=== PATIENT | male | born 1985 | race Asian ===

== ENCOUNTER 2018-10-23 04:07 | Observation (INO) | payer BC, OTHER ==
[2018-10-23 05:07] LABS: Absolute Lymphocytes (CBC) 3.1 K/uL (0.7-4.9); Absolute Monocytes 0.6 K/uL (0.1-1.3); Absolute Neutrophil 8.1 K/uL (1.8-8.0); Basophils % 0.7 % (0-1.3); Eosinophils % 0.8 % (0-4.4); Hematocrit 44.2 % (39.6-49.0); Lymphocytes % 26.1 % (15.3-44.8); MPV 8.5 fL (7.6-11.3); Monocytes % 5.4 % (3.3-12.3); RBC Red Blood Cell Count 5.15 M/uL (4.33-5.43)
[2018-10-23 05:09] LABS: Protime INR 0.89
[2018-10-23 05:28] LABS: ALT/SGPT 44 U/L (12-78); AST/SGOT 10 U/L (15-37); Albumin 3.9 g/dL (3.4-5.0); Alkaline Phosphatase 117 U/L (45-117); BUN Blood Urea Nitrogen 13 mg/dL (7-18); Bicarbonate 26 mmol/L (21-32); Bilirubin Direct 0.1 mg/dL (0-0.2); Bilirubin Total 0.3 mg/dL (0.2-1.0); Glucose Level 225 mg/dL (74-106); NT PRO-BNP 10 pg/mL (<125); Potassium 3.7 mmol/L (3.5-5.1); Sodium Level 137 mmol/L (136-145); Troponin (Emerg Dept Use Only) < 0.02 ng/mL (0.0-0.045)
[2018-10-23] MEDS ORDERED: ASPIRIN 81 MG CHEWABLE TABLET ONE (05:30)
--- NOTE | 2018-10-23 05:43 | ER ---
Nurse's Notes [facility] Name: Jim Nguyễn Jr Age: 33 yrs Sex: Male : 1985 Arrival Date: 10/23/2018 Time: 04:07 Bed 16 Private MD: Juan David Pelaez Diagnosis: Chest pain;palpitations Presentation: 10/23 04:20 Presenting complaint: Patient states: right sided chest pain started 0300h suddenly I rr5 woke up and felt the pain associated with right arm numbness.pain score of 3/10. Transition of care: patient was not received from another setting of care. Onset of symptoms was October 23, 2018 at 03:00. Risk Assessment: Do you want to hurt yourself or someone else? Patient reports no desire to harm self or others. Initial Sepsis Screen: Does the patient meet any 2 criteria? No. Patient's initial sepsis screen is negative. Does the patient have a suspected source of infection? No. Patient's initial sepsis screen is negative. Care prior to arrival: None. 04:20 Method Of Arrival: Ambulatory rr5 04:20 Acuity: LUCILA 3 rr5 Historical: - Allergies: 04:27 No Known Allergies; rr5 - Home Meds: 04:27 Glipizide Oral [Active]; lisinopril Oral [Active]; Metformin Oral [Active]; rr5 - PMHx: 04:27 Asthma; Diabetes - NIDDM; Hypertension; rr5 - PSHx: 04:27 Appendectomy; rr5 - Immunization history:: Adult Immunizations not up to date. - Social history:: Smoking status: Patient uses tobacco products, smokes one pack cigarettes per day. Patient uses alcohol, occasionally. Patient/guardian denies using street drugs. - Ebola Screening: : Patient negative for fever greater than or equal to 101.5 degrees Fahrenheit, and additional compatible Ebola Virus Disease symptoms Patient denies exposure to infectious person Patient denies travel to an Ebola-affected area in the 21 days before illness onset. - Family history:: pertinent for diabetes, hypertension. - Hospitalizations: : No recent hospitalization is reported. Screenin:31 Abuse screen: Denies threats or abuse. Denies injuries from another. Nutritional rr5 screening: No deficits noted. Tuberculosis screening: No symptoms or risk factors identified. Fall Risk IV access (20 points). Total Couch Fall Scale indicates No Risk (0-24 pts). Assessment: 04:20 General: Appears in no apparent distress. comfortable, Behavior is calm, cooperative, rr5 appropriate for age. Pain: Complains of pain in right sided chest pain Pain does not radiate. Pain currently is 3 out of 10 on a pain scale. Quality of pain is described as aching, Pain began suddenly, Is intermittent. Neuro: Level of Consciousness is awake, alert, obeys commands, Oriented to person, place, time, situation, Appropriate for age. Cardiovascular: Capillary refill < 3 seconds Patient's skin is warm and dry. Rhythm is sinus tachycardia. Respiratory: Airway is patent Respiratory effort is even, unlabored, Respiratory pattern is regular, symmetrical. GI: No signs and/or symptoms were reported involving the gastrointestinal system. : No signs and/or symptoms were reported regarding the genitourinary system. EENT: No signs and/or symptoms were reported regarding the EENT system. Derm: Skin is intact, Skin temperature is warm. 04:20 Musculoskeletal: Capillary refill < 3 seconds, Range of motion: intact in all rr5 extremities. 05:30 Reassessment: Patient appears in no apparent distress at this time. Patient and/or rr5 family updated on plan of care and expected duration. Pain level reassessed. informed patient will be admitted. seen and examined by dr. candelario. 06:18 Reassessment: Patient appears in no apparent distress at this time. Patient and/or rr5 family updated on plan of care and expected duration. Pain level reassessed. no complaints made Patient states feeling better. Patient states symptoms have improved. Vital Signs: 04:20 BP 176 / 123; Pulse 106; Resp 19; Temp 98.5; Pulse Ox 100% on R/A; Weight 95.25 kg; rr5 Height 5 ft. 9 in. (175.26 cm); Pain 3/10; 05:00 BP 144 / 84; Pulse 95; Resp 17; Pulse Ox 99% on R/A; rr5 05:30 BP 127 / 74; Pulse 95; Resp 19; Pulse Ox 99% ; rr5 06:00 BP 119 / 69; Pulse 88; Resp 20; Pulse Ox 99% ; rr5 04:20 Body Mass Index 31.01 (95.25 kg, 175.26 cm) rr5 ED Course: 04:07 Patient arrived in ED. ds1 04:08 Juan David Pelaez MD is Private Physician. ds1 04:20 Evangelist Ambrose, RN is Primary Nurse. rr5 04:20 Darrick Novoa MD is Attending Physician. wa 04:25 Triage completed. rr5 04:25 Patient has correct armband on for positive identification. Placed in gown. Bed in low rr5 position. Call light in reach. Side rails up X2. property assessment monitor on. Pulse ox on. NIBP on. 04:28 Arm band placed on right wrist. EKG completed in triage. Results shown to MD. rr5 04:31 No provider procedures requiring assistance completed. Patient maintains SpO2 rr5 saturation greater than 95% on room air. 04:50 Inserted saline lock: 20 gauge in left forearm, using aseptic technique. Blood jd3 collected. 05:10 Patient moved to radiology via wheelchair. kw 05:10 X-ray completed. Patient tolerated procedure well. kw 05:10 Patient moved back from radiology. kw 05:11 Chest Pa And Lat (2 Views) XRAY In Process Unspecified. EDMN 05:41 Pepper Lim MD is Hospitalizing Provider. wa 06:18 Patient admitted, IV remains in place. intact. rr5 10:33 Routine [place]elso treadmill stress test performed. tc Administered Medications: 05:24 Drug: Aspirin Chewable Tablet 324 mg Route: PO; rr5 06:30 Follow up: Response: No adverse reaction rr5 Outcome: 05:41 Decision to Hospitalize by Provider. wa 06:25 Admitted to ER Hold. Please see [facility] for further documentation. rr5 06:25 Condition: stable 06:25 Instructed on the need for admit. 12:26 Patient left the ED. tw2 Signatures: Dispatcher [employer] EDMN Vidhya Bhatti ds1 Claudia Cramer kw Caron Meyer, geochemist EKG Ttc Gracie Sylvester RN RN tw2 Darrick Novoa MD MD wa Davies, Jonathon RN RN jd3 Evangelist Ambrose, RN RN rr5
--- NOTE | 2018-10-23 05:43 | EDPHYS ---
Physician Documentation [facility] Name: Jim Nguyễn Jr Age: 33 yrs Sex: Male : 1985 Arrival Date: 10/23/2018 Time: 04:07 Bed 16 Private MD: Juan David Pleaez ED Physician Darrick Novoa HPI: 10/24 06:43 This 33 yrs old Male presents to ER via Ambulatory with complaints of Chest Pain. co 06:43 The patient or guardian reports chest pain that is located primarily in the substernal wa area. The pain does not radiate. Associated signs and symptoms: Pertinent positives: palpitations, shortness of breath, Pertinent negatives: cough, diaphoresis, dizziness. The chest pain is described as a pressure. Duration: The patient or guardian reports a single episode, that lasted 15 minute(s) woke pt from sleep. noted "heart racing". Modifying factors: The symptoms are alleviated by nothing. the symptoms are aggravated by nothing. Severity of pain: At its worst the pain was moderate just prior to arrival, in the emergency department the pain has resolved. h/o intermittent palpitations over several years. pt believes he has "anxiety". The patient has not recently seen a physician. has h/o HTN, DM, and smokes a pack a cigs per day. Historical: - Allergies: 10/23 04:27 No Known Allergies; rr5 - Home Meds: 04:27 Glipizide Oral [Active]; lisinopril Oral [Active]; Metformin Oral [Active]; rr5 - PMHx: 04:27 Asthma; Diabetes - NIDDM; Hypertension; rr5 - PSHx: 04:27 Appendectomy; rr5 - Immunization history:: Adult Immunizations not up to date. - Social history:: Smoking status: Patient uses tobacco products, smokes one pack cigarettes per day. Patient uses alcohol, occasionally. Patient/guardian denies using street drugs. - Ebola Screening: : Patient negative for fever greater than or equal to 101.5 degrees Fahrenheit, and additional compatible Ebola Virus Disease symptoms Patient denies exposure to infectious person Patient denies travel to an Ebola-affected area in the 21 days before illness onset. - Family history:: pertinent for diabetes, hypertension. - Hospitalizations: : No recent hospitalization is reported. ROS: 10/24 06:46 Constitutional: Negative for fever, chills, and weight loss, Eyes: Negative for injury, wa pain, redness, and discharge, ENT: Negative for injury, pain, and discharge, Neck: Negative for injury, pain, and swelling, Abdomen/GI: Negative for abdominal pain, nausea, vomiting, diarrhea, and constipation, Back: Negative for injury and pain, : Negative for injury, bleeding, discharge, and swelling, MS/Extremity: Negative for injury and deformity, Skin: Negative for injury, rash, and discoloration, Neuro: Negative for headache, weakness, numbness, tingling, and seizure. Cardiovascular: Positive for chest pain, palpitations, Negative for edema, orthopnea, paroxysmal nocturnal dyspnea. Respiratory: Positive for shortness of breath, at rest. Negative for hemoptysis, orthopnea, pleurisy. All other systems are negative. Exam: 06:47 Constitutional: This is a well developed, well nourished patient who is awake, alert, wa and in no acute distress. Head/Face: Normocephalic, atraumatic. Eyes: Pupils equal round and reactive to light, extra-ocular motions intact. Lids and lashes normal. Conjunctiva and sclera are non-icteric and not injected. Cornea within normal limits. Periorbital areas with no swelling, redness, or edema. ENT: Nares patent. No nasal discharge, no septal abnormalities noted. Tympanic membranes are normal and external auditory canals are clear. Oropharynx with no redness, swelling, or masses, exudates, or evidence of obstruction, uvula midline. Mucous membranes moist. Neck: Trachea midline, no thyromegaly or masses palpated, and no cervical lymphadenopathy. Supple, full range of motion without nuchal rigidity, or vertebral point tenderness. No Meningismus. Cardiovascular: Regular rate and rhythm with a normal S1 and S2. No gallops, murmurs, or rubs. Normal PMI, no JVD. No pulse deficits. Respiratory: Lungs have equal breath sounds bilaterally, clear to auscultation and percussion. No rales, rhonchi or wheezes noted. No increased work of breathing, no retractions or nasal flaring. Abdomen/GI: Soft, non-tender, with normal bowel sounds. No distension or tympany. No guarding or rebound. No evidence of tenderness throughout. Back: No spinal tenderness. No costovertebral tenderness. Full range of motion. Skin: Warm, dry with normal turgor. Normal color with no rashes, no lesions, and no evidence of cellulitis. MS/ Extremity: Pulses equal, no cyanosis. Neurovascular intact. Full, normal range of motion. Neuro: Awake and alert, GCS 15, oriented to person, place, time, and situation. Cranial nerves II-XII grossly intact. Motor strength 5/5 in all extremities. Sensory grossly intact. Cerebellar exam normal. Normal gait. Psych: Awake, alert, with orientation to person, place and time. Behavior, mood, and affect are within normal limits. Vital Signs: 10/23 04:20 BP 176 / 123; Pulse 106; Resp 19; Temp 98.5; Pulse Ox 100% on R/A; Weight 95.25 kg; rr5 Height 5 ft. 9 in. (175.26 cm); Pain 3/10; 05:00 BP 144 / 84; Pulse 95; Resp 17; Pulse Ox 99% on R/A; rr5 05:30 BP 127 / 74; Pulse 95; Resp 19; Pulse Ox 99% ; rr5 06:00 BP 119 / 69; Pulse 88; Resp 20; Pulse Ox 99% ; rr5 04:20 Body Mass Index 31.01 (95.25 kg, 175.26 cm) rr5 MDM: 04:21 Patient medically screened. co 10/24 06:47 Differential diagnosis: chest pain. consider paroxysmal dysrhythmia like afib vs SVT. wa although fairly young, has significant risk for ACS. will work up and rule out angina. Data reviewed: vital signs, nurses notes. Test interpretation: by ED physician or midlevel provider: EKG noted essentially within nml limits. labs noted with hyperglycemia. initial troponin negative. CXR nml. ED course: received ASA. admitted to [facility] associate with intent to r/o ACS and cardiology eval. 10/23 04:53 Order name: Basic Metabolic Panel 10/23 04:53 Order name: CBC with Diff; Complete Time: 05:53 10/23 04:53 Order name: LFT's 10/23 04:53 Order name: NT PRO-BNP 10/23 04:53 Order name: PT-INR; Complete Time: 05:53 10/23 04:53 Order name: Troponin (emerg Dept Use Only) co 10/23 04:53 Order name: EKG; Complete Time: 04:57 co 10/23 04:53 Order name: Cardiac monitoring; Complete Time: 04:55 co 10/23 04:53 Order name: Chest Pa And Lat (2 Views) XRAY co 10/23 06:21 Order name: Lipid Profile [facility] 10/23 07:44 Order name: Urine Dipstick--Ancillary (enter results) 10/23 08:39 Order name: Urinalysis [facility] 10/23 09:17 Order name: Urine Dipstick-Ancillary [facility] 10/23 04:53 Order name: EKG - Nurse/Tech; Complete Time: 04:55 co 10/23 04:53 Order name: IV Saline Lock; Complete Time: 04:59 co 10/23 04:53 Order name: Labs collected and sent; Complete Time: 04:59 co 10/23 04:53 Order name: O2 Per Protocol; Complete Time: 04:59 co 10/23 04:53 Order name: O2 Sat Monitoring; Complete Time: 04:59 co Administered Medications: 10/23 05:24 Drug: Aspirin Chewable Tablet 324 mg Route: PO; rr5 06:30 Follow up: Response: No adverse reaction rr5 Disposition: 10/23/18 05:41 Hospitalization ordered by Pepper Lim for Observation. Preliminary diagnosis are Chest pain, palpitations. - Bed requested for Telemetry/MedSurg (observation). - Status is Observation. tw2 - Condition is Stable. - Problem is new. - Symptoms have improved. UTI on Admission? No Signatures: Dispatcher [employer] [facility] Kayleigh branch Priscilla Canales RN RN kl Wise, Tara, RN RN tw2 Darrick Novoa MD MD wa Roque, Raymond RN RN rr5 Corrections: (The following items were deleted from the chart) :58 05:41 Hospitalization Ordered by Pepper Lim MD for Observation. Preliminary diagnosis is Chest pain; palpitations. Bed requested for Telemetry/MedSurg (observation). Status is Observation. Condition is Stable. Problem is new. Symptoms have improved. UTI on Admission? No. co 05:58 05:58 10/23/2018 05:41 Hospitalization Ordered by Pepper Lim MD for Observation. kl Preliminary diagnosis is Chest pain; palpitations. Bed requested for [facility] ER HOLD. Status is Observation. Condition is Stable. Problem is new. Symptoms have improved. UTI on Admission? No. kl 11:41 05:58 10/23/2018 05:41 Hospitalization Ordered by Pepper Lim MD for Observation. bd Preliminary diagnosis is Chest pain; palpitations. Bed requested for [facility] ER HOLD. Status is Observation. Condition is Stable. Problem is new. Symptoms have improved. UTI on Admission? No. kl 12:26 11:41 10/23/2018 05:41 Hospitalization Ordered by Pepper Lim MD for Observation. tw2 Preliminary diagnosis is Chest pain; palpitations. Bed requested for Telemetry/MedSurg (observation). Status is Observation. Condition is Stable. Problem is new. Symptoms have improved. UTI on Admission? No. bd
--- NOTE | 2018-10-23 05:56 | P.HP ---
Certification for Inpatient Patient admitted to: Observation With expected LOS: <2 Midnights Practitioner: I am a practitioner with admitting privileges, knowledge of patient current condition, hospital course, and medical plan of care. Services: Services provided to patient in accordance with Admission requirements found in Title 42 Section 412.3 of the Code of Federal Regulations Patient History Date of Service: 10/23/18 Reason for admission: chest pain History of Present Illness: Mr Nguyễn is a 33 years old male with history of DM II, obesity, tobacco abuse, HTN, who came to ED complaining of chest pain. The pain was pressure like, last for 2 hours, substernal, without radiation, 8/10 of intensity, the patient states that he was anxious and believes it was a panic attack. At my encounter he was chest pain free. Initial trop I is negative, EKG shows sinus rhythm with signs of early repolarization. CXR without acute infiltrate. He is hemodynamically stable. Allergies No Known Drug Allergies Allergy (Unverified 01/10/15 18:31) Unknown No Known Allergi Allergy (Uncoded 02/09/17 13:00) Unknown Shellfish Containing Products Allergy (Uncoded 01/10/15 18:31) Unknown Home medications list reviewed: Yes - Past Medical/Surgical History -: DM II -: obesity -: tobacco abuse -: HTN Past Surgical History: Reviewed- Non-Contributory - Family History Family History: Reviewed- Non-Contributory - Social History Smoking Status: Current every day smoker Counseled patient to stop smoking for: less than 10 minutes CD- Drugs: No Caffeine use: Yes Place of Residence: Home Review of Systems 10-point ROS is otherwise unremarkable Physical Examination - Physical Exam General: Alert, In no apparent distress HEENT: Atraumatic, PERRLA, Mucous membr. moist/pink, EOMI, Sclerae nonicteric Neck: Supple, 2+ carotid pulse no bruit, No LAD, Without JVD or thyroid abnormality Respiratory: Clear to auscultation bilaterally, Normal air movement Cardiovascular: Regular rate/rhythm, Normal S1 S2 Gastrointestinal: Normal bowel sounds, No tenderness Musculoskeletal: No tenderness Integumentary: No rashes Neurological: Normal speech, Normal strength at 5/5 x4 extr, Normal tone, Normal affect Lymphatics: No axilla or inguinal lymphadenopathy - Studies Laboratory Data (last 24 hrs) 10/23/18 04:50: PT 10.5, INR 0.89 10/23/18 04:50: WBC 12.0 H, Hgb 15.3, Hct 44.2, Plt Count 336 10/23/18 04:50: Sodium 137, Potassium 3.7, BUN 13, Creatinine 0.92, Glucose 225 H, Total Bilirubin 0.3, AST 10 L, ALT 44, Alkaline Phosphatase 117 Assessment and Plan - Problems (Diagnosis) (1) Chest pain Current Visit: Yes Status: Acute Qualifiers: Chest pain type: precordial pain Qualified Code(s): R07.2 - Precordial pain (2) Diabetes mellitus Current Visit: Yes Status: Acute Qualifiers: Diabetes mellitus type: type 2 Diabetes mellitus correction insulin use: without termite exterminator use Diabetes mellitus complication status: with unspecified complications Qualified Code(s): E11.8 - Type 2 diabetes mellitus with unspecified complications (3) Tobacco abuse Current Visit: Yes Status: Acute (4) HTN (hypertension) Current Visit: Yes Status: Acute Qualifiers: Hypertension type: essential hypertension Qualified Code(s): I10 - Essential (primary) hypertension (5) Obesity Current Visit: Yes Status: Acute Qualifiers: Obesity type: unspecified obesity type Obesity classification: unspecified obesity classification Serious obesity comorbidity presence: unspecified whether serious comorbidity present Qualified Code(s): E66.9 - Obesity, unspecified - Plan The patient will be admitted to the hospital due to chest pain. He has several risk factors for CAD, initial trop I is negative, EKG shows abnormal repolarization (possible early repolarization). Will order serial cardiac enzymes, EKG, ECHO and cardiology consult. - Advance Directives Does patient have a Living Will: No Does patient have a Durable POA for Healthcare: No - Code Status/Comfort Care Code Status Assessed: Yes Code Status: Full Code
[2018-10-23] MEDS: INSULIN -REGULAR HUMAN 50 UNIT/0.5 ML ML SQ SCH ×2 (06:01→11:50)
[2018-10-23] MEDS ORDERED: ACETAMINOPHEN 500 MG TAB PO PRN (06:01)
[2018-10-23 06:21] LABS: HDL Cholesterol 34 mg/dL (40-60); LDL Cholesterol, Calculated 115 (<130)
[2018-10-23 07:07] VITALS: BMI 30.9
--- NOTE | 2018-10-23 08:14 | RAD REPORT ---
EXAM DESCRIPTION: Edith Sarmiento (2 Views)10/23/2018 5:13 am CLINICAL HISTORY: Cough COMPARISON: 2017 FINDINGS: The lungs appear clear of acute infiltrate. The heart is normal size IMPRESSION: No acute abnormalities displayed
[2018-10-23 08:37] LABS: Urine Appearance CLEAR; Urine Bilirubin NEGATIVE (NEG); Urine Blood NEGATIVE (NEG); Urine Color YELLOW; Urine Glucose 3+ (NEG); Urine Protein NEGATIVE (NEG); Urine Specific Gravity 1.015 (1.005-1.030); Urine Urobilinogen 0.2 mg/dL (0.2-1.0); Urine pH 6.5 (5.0-7.0)
[2018-10-23 08:39] LABS: Urine Microscopic Reflex NO UMIC
[2018-10-23 08:42] VITALS: O2SAT 100
[2018-10-23] MEDS ORDERED: ENOXAPARIN 40 MG/0.4 ML SQ SCH (09:00)
[2018-10-23] MEDS ORDERED: INFLUENZA VACCINE (for 3y+) 0.5 ML DOSE IMVAC ONE (09:00)
[2018-10-23] MEDS ORDERED: ASPIRIN EC 81 MG TAB PO SCH (09:00)
[2018-10-23 09:16] LABS: Urine Blood TRACE (NEG); Urine Glucose 2+ (NEG); Urine Protein NEGATIVE (NEG); Urine pH 6.5 (5.0-7.0)
--- NOTE | 2018-10-23 09:38 | EKG ---
Test Date: 2018-10-23 Test Time: 04:26:35 Resident Service Coordinator: LUIS MANUEL MEASUREMENT RESULTS: Intervals: Rate: 93 MI: 164 QRSD: 90 QT: 356 QTc: 442 [place]: P: 44 MI: 164 QRS: 29 T: 30 INTERPRETIVE STATEMENTS: Normal sinus rhythm Normal ECG Compared to ECG 02/09/2017 09:56:05 No significant changes Electronically Signed On 10-23-18 09:37:50 REINSURANCE ACCOUNTANT by Kevin Gutierrez
--- NOTE | 2018-10-23 12:01 | CON ---
CARDIOLOGY CONSULT Chief Complaint: Chest pain. History Of Present Illness: Mr. Nguyễn seemed to feel pain in the upper right part of his chest, a s ticking point. It would come and go, seemed to be sharp, nonradiating, not associated with nausea, v omiting, sweating, or dyspnea. He has never had any heart trouble. He is a cigarette smoker. He is overweight, has diabetes and hypertension. Medications: His home medications are glipizide, lisinopril, and metformin, he is not sure about dos es. Physical Examination: General: He is 5 feet 9 inches, 209 pounds, body mass index 33. HEENT: Unremarkable. Lungs: Clear. Carotids: No bruit. Heart: Within normal limits. No friction rub. Abdomen: Soft. Extremities: Normal. Laboratory Data: Complete blood count normal. Chemistry panel normal, except for glucose of 225. T roponin less than 0.01. Total cholesterol 189, triglycerides 198, LDL cholesterol 115. EKG within n ormal limits. Impression: Mr. Nguyễn is pretty young to be having coronary heart disease, but he does smoke and is overweight and has diabetes, so we should regard it as potentially serious symptoms. The patient watson s been instructed that he should absolutely quit smoking. If he lost weight and got to his ideal bod y weight around 150 pounds, his prospects would be better. We should do an echocardiogram and stress test on him to see if he needs any further evaluation. KULDIP Voice ID: [id number] Report ID: [id number]
--- NOTE | 2018-10-23 14:41 | ECHO ---
HEIGHT: 5 ft 9 in WEIGHT: 209 lb 14.081 oz DATE OF STUDY: 10/23/[address]: Pepper De León MD 2-DIMENSIONAL: YES M.MODE: YES DOPPLER: YES COLOR FLOW: YES TDS: PORTABLE: DEFINITY: BUBBLE STUDY: DIAGNOSIS: CHEST PAIN CARDIAC HISTORY: CATHERIZATION: NO SURGERY: NO PROSTHETIC VALVE: NO PACEMAKER: NO MEASUREMENTS (cm) DIASTOLIC (NORMALS) SYSTOLIC (NORMALS) IVSd 1.2 (0.6-1.2) LA Diam 3.6 (1.9-4.0) LVEF 57% LVIDd 3.9 (3.5-5.7) LVIDs 2.7 (2.0-3.5) %FS 30% LVPWd 1.0 (0.6-1.2) Ao Diam 2.4 (2.0-3.7) 2 DIMENSIONAL ASSESSMENT: RIGHT ATRIUM: NORMAL LEFT ATRIUM: NORMAL RIGHT VENTRICLE: NORMAL LEFT VENTRICLE: NORMAL TRICUSPID VALVE: NORMAL MITRAL VALVE: NORMAL PULMONIC VALVE: NORMAL AORTIC VALVE: NORMAL PERICARDIAL EFFUSION: NONE AORTIC ROOT: NORMAL LEFT VENTRICULAR WALL MOTION: NORMAL DOPPLER/COLOR FLOW: NORMAL COMMENTS: NORMAL 2-DIMENSIONAL ECHOCARDIOGRAM WITH DOPPLER. TECHNOLOGIST: MARY ELLEN CHARLES
[2018-10-23 15:17] VITALS: BP 132/84; TEMP 97.1
--- NOTE | 2018-10-23 15:32 | TREADMILL ---
70% H.R.: 130 85% H.R.: 158 90% H.R.: 167 100% H.R.: 186 DX: ATYPICAL CHEST PAIN Date of Study: 10/23/2018 Ht: 5 9 Wt: 209 lb 14.081 oz Consulting Physician: CARMEN MEDICATIONS: LOPRESSOR, NITROSTAT, RANEXA HISTORY: 33 YEAR MALE WITH COMPLAINTS OF CHEST PAIN. HISTORY OF DIABETES MELLITUS TYPE TWO, OBESITY, HYPERTENSION, PATIENT SMOKES A PACK A DAY. OCCASIONAL DRINKER. PHYSICIAL EXAMINATION: RESTING B.P.: 134/91 RESTING H.R.: 80 RESTING EKG: NORMAL PROTOCOL: DWAINE ROUTIN EXERCISE TIME: 8:15 MAXIMUM HEART RATE: 160 % OF PREDICTED B.P. AT PEAK STRESS: 167/92 H.R. AT 1 MINUTE POST EXERCISE: IMPRESSION: ROUTINE TREADMILL STOPPED DUE TO TARGET HEART RATE REACHED AND PATIENT FATIGUE. NO SUPRAVENTRICULAR TACHYCARDIA. NO VENTRICULAR TACHYCARDIA. NO PREMATURE ATRIAL COMPLEXES. NO PREMATURE VENTRICULAR COMPLEXES. PATIENT REPORTED TWO OUT OF TEN CHEST PAIN PRIOR TO TEST, DURING AND IN RECOVERY PATIENT REPORTED ZERO OUT OF TEN CHEST PAIN OR TIGHTNESS. POST RECOVERY BLOOD PRESSURE 144/85. NO ST DEPRESSION WITH STRESS.
[2018-10-23] MEDS ORDERED: glipiZIDE 5 MG TAB PO SCH (16:30)
--- NOTE | 2018-10-24 02:26 | DS ---
Date of Discharge: 10/23/2018 Consultants: Dr. Gutierrez with Cardiology. Procedure: Treadmill stress test which was negative. Discharge Diagnoses: 1.Chest pain. Acute coronary syndrome ruled out. 2.Diabetes mellitus type 2 without long-term use of insulin, with hyperglycemia, uncontrolled. 3.Nicotine dependence, counseled, with cigarette smoking continuous. 4.Essential hypertension. 5.Obesity. Body mass index greater than 30 due to excess calories. Hospital Course: The patient is a 33-year-old male who came in to the hospital with chest pain, pres sure-like, and was admitted to rule out ACS. His cardiac enzymes and EKG were unremarkable. He did undergo a cardiac stress test which was negative. Echocardiogram showed normal EF at 57%. No wall m otion abnormality. The patient was seen by Cardiology, Dr. Gutierrez, who did not recommend any further testing past the stress test. The patient was then cleared for discharge. His chest pain resolved. Likely, the patient had panic attack versus anxiety and atypical chest pain. The patient does have risk factors. He was counseled regarding his smoking to quit completely, also to lose weight, and t o control his blood sugars better. The patient does have a family physician and was encouraged to fo llow. Medications: As per medication reconciliation list. Followup: Follow up with primary care physician in 2 to 3 days. Follow up with cook vacuum kettle, Dr. Juve huerta, in 2 weeks. Return to ER for worsening condition. Diet: Diabetic. Activity: As tolerated. Physical Examination: General: Awake, alert, oriented x3. No acute distress. Obese male. CV: S1, S2. No murmurs. Respiratory: Moving air well bilaterally. Abdomen: Soft, nontender, nondistended. Positive bowel sounds. Extremities: No clubbing, cyanosis, or edema. Neurologic: Nonfocal. SA/MODL Voice ID: [id number] Report ID: [id number]
[2018-10-24] MEDS ORDERED: LISINOPRIL 20 MG TAB PO SCH (09:00)
== END 2018-10-23 17:00 | disposition home or self-care (01) ==
LOC: ER 04:07 → ERHOLD 05:56 → 2ND 12:11
PROVIDERS: ADMIT Internal Medicine; ATTEND Internal Medicine
DX: R07.9 Chest pain, unspecified (principal); E11.65 Type 2 diabetes mellitus with hyperglycemia; F17.210 Nicotine dependence, cigarettes, uncomplicated; I10 Essential (primary) hypertension; E66.9 Obesity, unspecified; Z68.31 Body mass index [BMI] 31.0-31.9, adult
CPT/HCPCS: 36415; 71046; 80048; 80061; 80076; 81003; 82962; 83880; 84484; 85025; 85610; 93005; 93017; 93306; 99285; G0008; G0378

== ENCOUNTER 2019-02-09 07:21 | Emergency (ER) | payer BC ==
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
[2019-02-09] MEDS ORDERED: KETOROLAC 30 MG/ML INJ ONE (08:37)
[2019-02-09 09:02] LABS: Absolute Lymphocytes (CBC) 2.7 K/uL (0.7-4.9); Absolute Monocytes 0.3 K/uL (0.1-1.3); Absolute Neutrophil 5.3 K/uL (1.8-8.0); Basophils % 0.8 % (0-1.3); Eosinophils % 0.5 % (0-4.4); Hematocrit 43.3 % (39.6-49.0); Lymphocytes % 32.6 % (15.3-44.8); MPV 8.5 fL (7.6-11.3); RBC Red Blood Cell Count 4.99 M/uL (4.33-5.43)
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
[2019-02-09 09:14] LABS: BUN Blood Urea Nitrogen 15 mg/dL (7-18); Bicarbonate 24 mmol/L (21-32); Glucose Level 128 mg/dL (74-106); Sodium Level 140 mmol/L (136-145)
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
[2019-02-09 09:32] VITALS: BP 146/84; TEMP 97.6; O2SAT 99
== END 2019-02-09 09:27 | disposition home or self-care (01) ==
LOC: ER 07:21
DX: M62.838 Other muscle spasm (principal); M54.2 Cervicalgia; V40.5XXA Car driver injured in collision with pedestrian or animal in traffic accident, initial encounter; I10 Essential (primary) hypertension; E11.9 Type 2 diabetes mellitus without complications; J45.909 Unspecified asthma, uncomplicated
CPT/HCPCS: 36415; 70450; 71045; 72125; 72170; 80048; 85025; 86850; 86900; 86901

== ENCOUNTER 2019-07-09 22:50 | Observation (INO) | payer BC ==
[2019-07-09] MEDS ORDERED: MORPHINE 2 MG/ML SYR ONE (23:43)
[2019-07-09] MEDS ORDERED: ONDANSETRON 4 MG/2 ML VIAL ONE (23:43)
[2019-07-10 01:10] LABS: Absolute Lymphocytes (CBC) 4.3 K/uL (0.7-4.9); Basophils % 0.8 % (0-1.3); Hematocrit 43.1 % (39.6-49.0); Lymphocytes % 34.4 % (15.3-44.8); MPV 8.7 fL (7.6-11.3); RBC Red Blood Cell Count 4.98 M/uL (4.33-5.43)
[2019-07-10 01:11] LABS: Protime INR 0.88
[2019-07-10 01:42] LABS: ALT/SGPT 44 U/L (12-78); AST/SGOT 20 U/L (15-37); Albumin 4.4 g/dL (3.4-5.0); Alkaline Phosphatase 93 U/L (45-117); BUN Blood Urea Nitrogen 10 mg/dL (7-18); Bicarbonate 27 mmol/L (21-32); Bilirubin Direct 0.1 mg/dL (0-0.2); Bilirubin Total 0.4 mg/dL (0.2-1.0); Glucose Level 148 mg/dL (74-106); Magnesium 1.8 mg/dL (1.8-2.4); NT PRO-BNP 10 pg/mL (<125); Potassium 3.5 mmol/L (3.5-5.1); Protein, Total 8.3 g/dL (6.4-8.2); Sodium Level 138 mmol/L (136-145); Troponin (Emerg Dept Use Only) < 0.02 ng/mL (0.0-0.045)
--- NOTE | 2019-07-10 02:02 | ER ---
Nurse's Notes [facility] Name: Jim Nguyễn Jr Age: 34 yrs Sex: Male : 1985 Arrival Date: 07/09/2019 Time: 22:53 Bed 18 Private MD: Diagnosis: Chest pain, unspecified Presentation: 07/09 23:03 Presenting complaint: Patient states: CP x 3 days and feels like his heart palpitates aa1 when he takes a deep breath. Transition of care: patient was not received from another setting of care. Onset of symptoms was July 07, 2019. Risk Assessment: Do you want to hurt yourself or someone else? Patient reports no desire to harm self or others. Initial Sepsis Screen: Does the patient meet any 2 criteria? No. Patient's initial sepsis screen is negative. Does the patient have a suspected source of infection? No. Patient's initial sepsis screen is negative. Care prior to arrival: None. 23:03 Method Of Arrival: Ambulatory aa1 23:03 Acuity: LUCILA 3 aa1 Triage Assessment: 23:04 General: Appears in no apparent distress. comfortable, Behavior is calm, cooperative, aa1 appropriate for age. Historical: - Allergies: 23:04 No Known Allergies; aa1 - Home Meds: 23:04 Glipizide Oral [Active]; lisinopril Oral [Active]; Metformin Oral [Active]; aa1 - PMHx: 23:04 Asthma; Diabetes - NIDDM; Hypertension; aa1 - PSHx: 23:04 Appendectomy; aa1 - Immunization history:: Flu vaccine is not up to date. - Social history:: Smoking status: Patient uses tobacco products, smokes one pack cigarettes per day. - Ebola Screening: : No symptoms or risks identified at this time. Screenin:17 Abuse screen: Denies threats or abuse. Denies injuries from another. Nutritional wh screening: No deficits noted. Tuberculosis screening: No symptoms or risk factors identified. Fall Risk None identified. Assessment: 23:18 General: Appears in no apparent distress. Pain: Complains of pain in chest Pain does wh not radiate. Pain currently is 3 out of 10 on a pain scale. Quality of pain is described as aching, Pain began 1 hour ago. Neuro: Level of Consciousness is awake, alert, obeys commands, Oriented to person, place, time, situation, Appropriate for age. Cardiovascular: Heart tones S1 S2 Rhythm is regular. Respiratory: Airway is patent Respiratory effort is even, unlabored, Respiratory pattern is regular, symmetrical. GI: Abdomen is flat, non-distended. : No signs and/or symptoms were reported regarding the genitourinary system. EENT: No signs and/or symptoms were reported regarding the EENT system. Derm: Skin is intact, is healthy with good turgor, Skin is pink, warm \T\ dry. normal. Musculoskeletal: Circulation, motion, and sensation intact. 07/10 00:00 Reassessment: Patient appears in no apparent distress at this time. No changes from previously documented assessment. Patient and/or family updated on plan of care and expected duration. Pain level reassessed. Patient is alert, oriented x 3, equal unlabored respirations, skin warm/dry/pink. 01:15 Reassessment: Patient appears in no apparent distress at this time. No changes from previously documented assessment. Patient and/or family updated on plan of care and expected duration. Pain level reassessed. Patient is alert, oriented x 3, equal unlabored respirations, skin warm/dry/pink. Patient denies pain at this time. Patient states feeling better. Reassessment: Patient appears in no apparent distress at this time. No changes from previously documented assessment. Patient and/or family updated on plan of care and expected duration. Pain level reassessed. Patient is alert, oriented x 3, equal unlabored respirations, skin warm/dry/pink. Patient denies pain at this time. Patient states feeling better. 02:25 Reassessment: Patient appears in no apparent distress at this time. No changes from previously documented assessment. Patient and/or family updated on plan of care and expected duration. Pain level reassessed. Patient is alert, oriented x 3, equal unlabored respirations, skin warm/dry/pink. Patient denies pain at this time. Patient states feeling better. Vital Signs: 07/09 23:04 BP 156 / 95; Pulse 76; Resp 16; Temp 97.4; Pulse Ox 100% on R/A; Weight 98.88 kg; aa1 Height 5 ft. 9 in. (175.26 cm); Pain 3/10; 07/10 00:00 BP 129 / 84; Pulse 77; Resp 18; Pulse Ox 100% ; 01:15 BP 119 / 80; Pulse 69; Resp 18; Pulse Ox 98% on R/A; 02:25 BP 112 / 67; Pulse 66; Resp 16; Pulse Ox 99% on R/A; 07/09 23:04 Body Mass Index 32.19 (98.88 kg, 175.26 cm) aa1 ED Course: 07/09 22:53 Patient arrived in ED. 3 22:55 Andrew Greene is Primary Nurse. 22:56 Randal Nicholas PA is PHCP. [facility] 22:56 Jasbir Boothe MD is Attending Physician. [facility] 23:04 Triage completed. aa1 23:04 Arm band placed on right wrist. aa1 23:20 Patient has correct armband on for positive identification. Placed in gown. Bed in low wh position. Call light in reach. Side rails up X 1. merchandise clerk on. Pulse ox on. NIBP on. 23:20 Patient maintains SpO2 saturation greater than 95% on room air. 23:35 Inserted saline lock: 20 gauge in right antecubital area, using aseptic technique. Blood collected. 07/10 02:00 Hector Lang MD is Hospitalizing Provider. [facility] 02:08 XRAY Chest (1 view) In Process Unspecified. EDMS 03:04 No provider procedures requiring assistance completed. Patient admitted, IV remains in place. Administered Medications: 07/09 23:45 Drug: morphine 2 mg {Note: RASS 0.} Route: IVP; Site: right antecubital; 07/10 02:27 Follow up: Response: No adverse reaction; Pain is decreased; RASS: Alert and Calm (0) 07/09 23:45 Drug: Zofran 4 mg Route: IVP; Site: right antecubital; 07/10 02:27 Follow up: Response: No adverse reaction Outcome: 02:00 Decision to Hospitalize by Provider. [facility] 03:04 Admitted to Med/surg accompanied by nurse, via wheelchair, room 208, with chart, Report called to Bailey Jorgensen RN 03:04 Condition: good 03:04 Instructed on the need for admit. 03:11 Patient left the ED. jb4 Signatures: Dispatcher [employer] EDMS Saloni Casey RN RN aa1 Randal Nicholas PA PA jmm Bryson, James, RN RN jb4 Andrew Greene Alice 3
--- NOTE | 2019-07-10 02:02 | EDPHYS ---
Physician Documentation [facility] Name: Jim Nguyễn Jr Age: 34 yrs Sex: Male : 1985 Arrival Date: 07/09/2019 Time: 22:53 Bed 18 Private MD: ED Physician Jasbir Boothe HPI: 07/09 23:27 This 34 yrs old Male presents to ER via Ambulatory with complaints of Chest Pain. [facility] 23:27 The patient or guardian reports chest pain that is located primarily in the substernal [facility] area. The pain does not radiate. Associated signs and symptoms: Pertinent positives:. The chest pain is described as a pressure, sharp. Duration: The patient or guardian reports a single episode. Modifying factors: The symptoms are alleviated by nothing. the symptoms are aggravated by nothing. This is a 34 year old male with a history of asthma, dm, htn that presents to the ED with complaints of chest pain which beginning this evening around 9 pm this evening. Patient denies history of CAD. States was admitted for chest pain approx 1 year ago with negative stress test. . Historical: - Allergies: 23:04 No Known Allergies; aa1 - Home Meds: 23:04 Glipizide Oral [Active]; lisinopril Oral [Active]; Metformin Oral [Active]; aa1 - PMHx: 23:04 Asthma; Diabetes - NIDDM; Hypertension; aa1 - PSHx: 23:04 Appendectomy; aa1 - Immunization history:: Flu vaccine is not up to date. - Social history:: Smoking status: Patient uses tobacco products, smokes one pack cigarettes per day. - Ebola Screening: : No symptoms or risks identified at this time. ROS: 23:27 Constitutional: Negative for fever, chills, and weight loss, Respiratory: Negative for jmm shortness of breath, cough, wheezing, and pleuritic chest pain. 23:27 Cardiovascular: Positive for chest pain. 23:27 All other systems are negative. Exam: 23:27 Constitutional: This is a well developed, well nourished patient who is awake, alert, jmm and in no acute distress. Head/Face: atraumatic. Eyes: EOMI, no conjunctival erythema appreciated ENT: Moist Mucus Membranes Neck: Trachea midline, Supple Chest/axilla: Normal chest wall appearance and motion. Cardiovascular: Regular rate and rhythm. No edema appreciated Respiratory: Normal respirations, no respiratory distress appreciated Abdomen/GI: Non distended, soft Back: Normal ROM Skin: General appearance color normal MS/ Extremity: Moves all extremities, no obvious deformities appreciated, no edema noted to the lower extremities Neuro: Awake and alert, normal gait Psych: Behavior is normal, Mood is normal, Patient is cooperative and pleasant Vital Signs: 23:04 BP 156 / 95; Pulse 76; Resp 16; Temp 97.4; Pulse Ox 100% on R/A; Weight 98.88 kg; aa1 Height 5 ft. 9 in. (175.26 cm); Pain 3/10; 07/10 00:00 BP 129 / 84; Pulse 77; Resp 18; Pulse Ox 100% ; wh 01:15 BP 119 / 80; Pulse 69; Resp 18; Pulse Ox 98% on R/A; wh 02:25 BP 112 / 67; Pulse 66; Resp 16; Pulse Ox 99% on R/A; wh 07/09 23:04 Body Mass Index 32.19 (98.88 kg, 175.26 cm) aa1 MDM: 07/09 23:21 Patient medically screened. [facility] 07/10 01:53 Data reviewed: vital signs, nurses notes, lab test result(s), EKG, radiologic studies, [facility] plain films. ED course: I discussed the patient with Dr. Lang whom accepted admission. . 07/10 01:03 Order name: Basic Metabolic Panel; Complete Time: 01:46 [facility] 07/10 01:03 Order name: Liver (Hepatic) Function; Complete Time: 01: [facility] 07/10 01:04 Order name: Troponin (Emerg Dept Use Only); Complete Time: 01:46 [facility] 07/10 01:04 Order name: NT PRO-BNP; Complete Time: 01:46 [facility] 07/10 01:04 Order name: Magnesium; Complete Time: 01:46 [facility] 07/10 01:04 Order name: CBC with Automated Diff; Complete Time: 01: [facility] 07/10 01:05 Order name: Protime (+INR); Complete Time: 01:22 [facility] 07/09 23:25 Order name: XRAY Chest (1 view) [facility] 07/09 23:25 Order name: EKG; Complete Time: [facility] 07/09 23:25 Order name: Cardiac monitoring; Complete Time: 23:45 [facility] 07/09 23:25 Order name: EKG - Nurse/Tech; Complete Time: 23:45 [facility] 07/09 23:25 Order name: IV Saline Lock; Complete Time: 23:45 [facility] 07/09 23:25 Order name: Labs collected and sent; Complete Time: 23:45 [facility] 07/10 02:44 Order name: CONS Physician Consult [facility] 07/10 02:44 Order name: Heart Healthy [facility] 07/10 02:44 Order name: Echo with Doppler [facility] 07/10 02:44 Order name: EKG Electrocardiogram [facility] 07/10 02:44 Order name: EKG Electrocardiogram [facility] 07/10 02:44 Order name: Lipid Profile [facility] 07/10 02:44 Order name: Troponin I [facility] 07/10 02:44 Order name: Troponin I [facility] 07/09 23:25 Order name: O2 Per Protocol; Complete Time: 23:45 [facility] 07/09 23:25 Order name: O2 Sat Monitoring; Complete Time: 23:45 [facility] Administered Medications: 07/09 23:45 Drug: morphine 2 mg {Note: RASS 0.} Route: IVP; Site: right antecubital; 07/10 02:27 Follow up: Response: No adverse reaction; Pain is decreased; RASS: Alert and Calm (0) 07/09 23:45 Drug: Zofran 4 mg Route: IVP; Site: right antecubital; 07/10 02:27 Follow up: Response: No adverse reaction Disposition: 07/10/19 02:00 Hospitalization ordered by Hector Lang for Observation. Preliminary diagnosis is Chest pain, unspecified. - Bed requested for Telemetry/MedSurg (observation). - Status is Observation. jb4 - Condition is Stable. - Problem is new. - Symptoms are unchanged. UTI on Admission? No Addendum: 07/13/2019 14:49 Co-signature as Attending Physician, Jasbir Boothe MD. g s Signatures: Dispatcher [employer] [facility] Jasmina Domingo RN RN Saloni Casey RN RN aa1 Randal Nicholas PA PA [facility] Kee Wagner RN RN jb4 Andrew Greene Jasbir Boothe MD MD gs Corrections: (The following items were deleted from the chart) 07/10 01:38 01:28 BASIC METABOLIC PANEL+C.LAB.BRZ ordered. [facility] EDMS 01:28 CBC+H.LAB.BRZ ordered. [facility] EDMS 01:28 HEPATIC FUNCTION+C.LAB.BRZ ordered. [facility] EDMS 01:28 MAGNESIUM+C.LAB.BRZ ordered. [facility] EDMS 01:28 PROBNP+C.LAB.BRZ ordered. [facility] EDMS 01:28 PROTIME (+INR)+COAG.LAB.BRZ ordered. [facility] EDMS 01:28 TROPONIN (EMERG DEPT USE ONLY)+C.LAB.BRZ ordered. [facility] 02:59 02:00 Hospitalization Ordered by Hector Lang MD for Observation. Preliminary mw diagnosis is Chest pain, unspecified. Bed requested for Telemetry/MedSurg (observation). Status is Observation. Condition is Stable. Problem is new. Symptoms are unchanged. UTI on Admission? No. jmm 03:11 02:59 07/10/2019 02:00 Hospitalization Ordered by Hector Lang MD for Observation. jb4 Preliminary diagnosis is Chest pain, unspecified. Bed requested for Telemetry/MedSurg (observation). Status is Observation. Condition is Stable. Problem is new. Symptoms are unchanged. UTI on Admission? No. mw
[2019-07-10] MEDS ORDERED: ALPRAZOLAM 0.25 MG TABLET PO PRN (02:38)
[2019-07-10] MEDS ORDERED: ACETAMINOPHEN 500 MG TAB PO PRN (02:38)
[2019-07-10] MEDS ORDERED: MORPHINE 4 MG/ML SYR IV PRN (02:38)
[2019-07-10 03:22] VITALS: BP 130/81; TEMP 97; BMI 32.8
[2019-07-10 03:23] VITALS: O2SAT 99
[2019-07-10 06:26] LABS: HDL Cholesterol 32 mg/dL (40-60); LDL Cholesterol, Calculated 97 (<130); Troponin I < 0.02 ng/mL (0.0-0.045)
[2019-07-10 06:37] LABS: Urine Appearance CLEAR; Urine Bilirubin NEGATIVE (NEG); Urine Blood NEGATIVE (NEG); Urine Color YELLOW; Urine Glucose NEGATIVE (NEG); Urine Protein NEGATIVE (NEG); Urine Specific Gravity 1.015 (1.005-1.030); Urine Urobilinogen 0.2 mg/dL (0.2-1.0)
[2019-07-10 06:38] LABS: Urine Microscopic Reflex NO UMIC
--- NOTE | 2019-07-10 08:22 | RAD REPORT ---
EXAM DESCRIPTION: Edith Single View07/10/2019 2:07 am CLINICAL HISTORY: Chest pain COMPARISON: January 2019 FINDINGS: The lungs appear clear of acute infiltrate. The heart is normal size IMPRESSION: No acute abnormalities displayed
--- NOTE | 2019-07-10 08:38 | P.HP ---
Certification for Inpatient Patient admitted to: Observation With expected LOS: <2 Midnights Patient will require the following post-hospital care: None Practitioner: I am a practitioner with admitting privileges, knowledge of patient current condition, hospital course, and medical plan of care. Services: Services provided to patient in accordance with Admission requirements found in Title 42 Section 412.3 of the Code of Federal Regulations Patient History Date of Service: 07/10/19 Reason for admission: Chest pain History of Present Illness: patient is a 34-year-old gentleman who came to the hospital with chest discomfort. Pain was mainly in the sternal region. Patient states he has had similar episode in the past. He had a stress test a couple of years ago. This was negative. Patient states that his pain started around 9:00 a.m.. It has been waxing and waning. He has multiple risk factors including hypertension, diabetes, and tobacco use. He also has a family history. He will be admitted to the hospital for further workup. Will have Cardiology see him and see if he needs any further intervention during this hospital stay or as an outpatient. Allergies No Known Drug Allergies Allergy (Verified 07/10/19 03:39) Unknown No Known Allergi Allergy (Uncoded 02/09/17 13:00) Unknown Shellfish Containing Products Allergy (Uncoded 07/10/19 03:39) Unknown Home Medications: Glipizide [Glucotrol] 20 mg PO BID 10/23/18 Lisinopril [Prinivil*] 20 mg PO DAILY 10/23/18 Metformin ER [Glucophage ER*] 1,000 mg PO BID 10/23/18 - Past Medical/Surgical History Has patient received pneumonia vaccine in the past: No Diabetic: Yes -: DM II -: obesity -: tobacco abuse -: HTN -: appendectomy - Family History Father Medical History: Hypertension, Diabetes, Cancer Mother Medical History: Hypertension, Diabetes, Cancer Brother Medical History: Hypertension, Diabetes Sister Medical History: Hypertension, Diabetes - Social History Smoking Status: Current every day smoker Alcohol use: Yes CD- Drugs: No Caffeine use: Yes Place of Residence: Home Review of Systems 10-point ROS is otherwise unremarkable Physical Examination - Vital Signs Temperature: 97 F Blood Pressure: 130/81 Pulse: 70 Respirations: 16 Pulse Ox (%): 99 - Physical Exam General: Alert, In no apparent distress, Oriented x3 HEENT: Atraumatic, PERRLA, Mucous membr. moist/pink, EOMI, Sclerae nonicteric Neck: Supple, 2+ carotid pulse no bruit, No LAD, Without JVD or thyroid abnormality Respiratory: Clear to auscultation bilaterally, Normal air movement Cardiovascular: Regular rate/rhythm, Normal S1 S2, No murmurs Gastrointestinal: Normal bowel sounds, Soft and benign, Non-distended, No tenderness Musculoskeletal: No clubbing, No swelling, No tenderness Integumentary: No rashes Neurological: Normal gait, Normal speech, Normal strength at 5/5 x4 extr, Normal tone, Sensation intact, Cranial nerves 3-12 intact, Normal affect Lymphatics: No axilla or inguinal lymphadenopathy - Studies Laboratory Data (last 24 hrs) 07/09/19 23:40: PT 10.4, INR 0.88 07/09/19 23:40: WBC 12.4 H, Hgb 14.8, Hct 43.1, Plt Count 325 07/09/19 23:40: Sodium 138, Potassium 3.5, BUN 10, Creatinine 0.83, Glucose 148 H, Magnesium 1.8, Total Bilirubin 0.4, AST 20, ALT 44, Alkaline Phosphatase 93 07/09/19 23:25: PT Cancelled, INR Cancelled 07/09/19 23:25: WBC Cancelled, Hgb Cancelled, Hct Cancelled, Plt Count Cancelled 07/09/19 23:25: Sodium Cancelled, Potassium Cancelled, BUN Cancelled, Creatinine Cancelled, Glucose Cancelled, Magnesium Cancelled, Total Bilirubin Cancelled, AST Cancelled, ALT Cancelled, Alkaline Phosphatase Cancelled Assessment & Plan - Problems (Diagnosis) (1) Chest pain Onset Date: 10/26/18 Current Visit: No Status: Acute Qualifiers: Chest pain type: precordial pain Qualified Code(s): R07.2 - Precordial pain (2) Diabetes mellitus Onset Date: 10/26/18 Current Visit: No Status: Acute Qualifiers: Diabetes mellitus type: type 2 Diabetes mellitus 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 Serial troponins and EKG 2. Cardiology consultation 3. Echocardiogram 4. Anti-platelet therapy, anti coagulation, beta-nurys, statin, and O2 as needed 5. IV morphine for pain 6. Nitro p.r.n. Discharge Plan: Home Plan to discharge in: 48 Hours - Advance Directives Does patient have a Living Will: No Does patient have a Durable POA for Healthcare: No - Code Status/Comfort Care Code Status Assessed: Yes Code Status: Full Code Critical Care: No Time Spent Managing PTS Care (In Minutes): 45
[2019-07-10] MEDS ORDERED: ASPIRIN 325 MG TAB PO SCH (09:00)
[2019-07-10] MEDS ORDERED: METOPROLOL TAR 50 MG TAB PO SCH (09:00)
[2019-07-10] MEDS ORDERED: ENOXAPARIN 40 MG/0.4 ML SQ SCH (09:00)
--- NOTE | 2019-07-10 10:01 | CON ---
This is a 34-year-old man. Chief Complaint: Palpitations. History Of Present Illness: The patient notes when he lays down at night he will often feel his hear t beat irregularly. He sits up, it is a feeling he does not like. In October of this year, he came here with the same complaints. Electrocardiograms, exercise stress test, and echocardiogram are all n ormal. He was monitored for about 48 hours. No diagnosis was made and he continues to have his symp toms. He has underlying diabetes, obesity. He takes metformin, glipizide, and lisinopril. He has n ever had myocardial infarction or stroke. He uses no tobacco, alcohol, or illegal drugs. Physical Examination: General: Height 5 feet 9 inch, 222 pounds. Body mass index 32. HEENT: Normal. Carotids: No bruit. Lungs: Clear. Cardiac: Exam normal. Abdomen: Soft. Extremities: Normal. No cyanosis, clubbing, or edema. His EKG is unremarkable. Laboratory Exam: Normal. Telemetry has not shown any arrhythmia. His total cholesterol is 152, LDL is 97. Blood sugars 148, 151. Recommendations: My recommendation is that Mr. Nguyễn be discharged home today and have a month long event monitor placed. He can call my office and have that placed this coming week. KULDIP Voice ID: [id number] Report ID: [id number]
--- NOTE | 2019-07-10 15:35 | EKG ---
Test Date: 2019-07-09 Test Time: 23:14:49 Hot Knife Foxing Cutter: IVONNE MEASUREMENT RESULTS: Intervals: Rate: 76 NH: 166 QRSD: 84 QT: 368 QTc: 414 [place]: P: 48 NH: 166 QRS: 55 T: 11 INTERPRETIVE STATEMENTS: Normal sinus rhythm cannot ruleout Inferior infarct, age undetermined Abnormal ECG Compared to ECG 10/23/2018 04:26:35 Myocardial infarct finding now present Electronically Signed On 07-10-19 15:35:21 CDT by Kevin Gutierrez
== END 2019-07-10 10:59 | disposition home or self-care (01) ==
LOC: ER 22:50 → 2ND 07-10 03:04
PROVIDERS: ADMIT Hospitalist; ATTEND Hospitalist
DX: R07.2 Precordial pain (principal); R00.2 Palpitations; E11.9 Type 2 diabetes mellitus without complications; I10 Essential (primary) hypertension; E66.9 Obesity, unspecified; F17.200 Nicotine dependence, unspecified, uncomplicated
CPT/HCPCS: 93005; 85025; 80048; 36415; 83735; 85610; 80061; 82962 ×2; 80076; 81003; 84484 ×2; 83880; 71045; 96375; 96374; 99285; J1650; J2270; J2405; G0378 ×2

== ENCOUNTER 2019-09-09 22:04 | Emergency (ER) | payer BC ==
[2019-09-09] MEDS ORDERED: LIDOCAINE VISCOUS 2% SOLN 15 ML UDC ONE (23:04)
[2019-09-09] MEDS ORDERED: MAGNE/ALUM HYDROXD 30 ML UCUP ONE (23:04)
[2019-09-09 23:08] LABS: Absolute Lymphocytes (CBC) 4.1 K/uL (0.7-4.9); Basophils % 1.2 % (0-1.3); Hematocrit 42.4 % (39.6-49.0); Lymphocytes % 45.9 % (15.3-44.8); MPV 8.4 fL (7.6-11.3); RBC Red Blood Cell Count 4.91 M/uL (4.33-5.43)
[2019-09-09 23:18] LABS: Protime INR 0.91
[2019-09-09 23:28] LABS: ALT/SGPT 57 U/L (12-78); AST/SGOT 14 U/L (15-37); Albumin 3.8 g/dL (3.4-5.0); Alkaline Phosphatase 114 U/L (45-117); BUN Blood Urea Nitrogen 16 mg/dL (7-18); Bicarbonate 25 mmol/L (21-32); Bilirubin Direct < 0.1 mg/dL (0-0.2); Bilirubin Total 0.2 mg/dL (0.2-1.0); Glucose Level 277 mg/dL (74-106); Magnesium 1.8 mg/dL (1.8-2.4); NT PRO-BNP 11 pg/mL (<125); Potassium 3.5 mmol/L (3.5-5.1); Protein, Total 7.7 g/dL (6.4-8.2); Sodium Level 134 mmol/L (136-145); Troponin (Emerg Dept Use Only) < 0.02 ng/mL (0.0-0.045)
--- NOTE | 2019-09-10 00:28 | ER ---
Nurse's Notes [facility] Name: Jim Nguyễn Jr Age: 34 yrs Sex: Male : 1985 Arrival Date: 09/09/2019 Time: 22:05 Bed 18 Private MD: Juan David Pelaez Diagnosis: Chest pain, unspecified Presentation: 09/09 22:15 Presenting complaint: Patient states: "Breathing difficulty, chest pain and I felt like cc3 I passed out". Transition of care: patient was not received from another setting of care. Onset of symptoms was September 09, 2019. Risk Assessment: Do you want to hurt yourself or someone else? Patient reports no desire to harm self or others. Initial Sepsis Screen: Does the patient meet any 2 criteria? No. Patient's initial sepsis screen is negative. Does the patient have a suspected source of infection? No. Patient's initial sepsis screen is negative. Care prior to arrival: Medication(s) given: patient said he took 10 pieces of low dose Aspirin at 1900H because he ate a lot of fatty foods. 22:15 Method Of Arrival: Ambulatory cc3 22:15 Acuity: LUCILA 2 cc3 Triage Assessment: 22:15 General: Appears in no apparent distress. comfortable, Behavior is calm, cooperative, cc3 appropriate for age. Respiratory: Reports shortness of breath at rest on exertion since tonight Onset: The symptoms/episode began/occurred just prior to arrival, the patient has mild shortness of breath. Historical: - Allergies: 22:15 No Known Allergies; cc3 - Home Meds: 22:15 Glipizide Oral [Active]; lisinopril Oral [Active]; Metformin Oral [Active]; cc3 - PMHx: 22:15 Asthma; Diabetes - NIDDM; Hypertension; cc3 - PSHx: 22:15 Appendectomy; cc3 - Immunization history:: Adult Immunizations not up to date. - Social history:: Smoking status: Patient uses tobacco products, smokes one pack cigarettes per day. - Ebola Screening: : No symptoms or risks identified at this time. Screenin:15 Abuse screen: Denies threats or abuse. Denies injuries from another. Nutritional cc3 screening: No deficits noted. Tuberculosis screening: No symptoms or risk factors identified. Fall Risk Ambulatory Aid- None/Bed Rest/Nurse Assist (0 pts). Gait- Normal/Bed Rest/Wheelchair (0 pts) Mental Status- Oriented to own ability (0 pts). Assessment: 22:15 Pain: Denies pain. Cardiovascular: Denies chest pain, Rhythm is sinus rhythm. cc3 Respiratory: Airway is patent Respiratory effort is even, unlabored, Respiratory pattern is regular, symmetrical, Breath sounds are clear bilaterally. 23:18 Reassessment: Patient appears in no apparent distress at this time. Patient and/or cc3 family updated on plan of care and expected duration. Pain level reassessed. Patient is alert, oriented x 3, equal unlabored respirations, skin warm/dry/pink. Patient denies pain at this time. Patient states feeling better. Patient states symptoms have improved. 09/10 00:45 Reassessment: Patient appears in no apparent distress at this time. Patient and/or cc3 family updated on plan of care and expected duration. Pain level reassessed. Patient is alert, oriented x 3, equal unlabored respirations, skin warm/dry/pink. SABRA Nicholas discharged the patient home with prescription given. IV cannula removed and patient left ER vitally stable and ambulatory. No valuables left in the patient's room. Patient denies pain at this time. Patient states feeling better. Patient states symptoms have improved. Vital Signs: 09/09 22:15 BP 124 / 90; Pulse 75; Resp 15 S; Temp 98.2(O); Pulse Ox 100% on R/A; Weight 95.25 kg cc3 (R); Height 5 ft. 9 in. (175.26 cm) (R); Pain 0/10; 23:20 BP 131 / 93; Pulse 77; Resp 15 S; Pulse Ox 100% on R/A; Pain 0/10; cc3 09/10 00:40 BP 125 / 89; Pulse 74; Resp 16 S; Pulse Ox 99% on R/A; Pain 0/10; cc3 09/09 22:15 Body Mass Index 31.01 (95.25 kg, 175.26 cm) 3 ED Course: 09/09 22:05 Patient arrived in ED. mr 22:06 Juan David Pelaez MD is Private Physician. mr 22:06 [facility] 22:06 Armando Chandra MD is Attending Physician. [facility] 22:11 Palma Gill is Primary Nurse. cc3 22:11 Arm band placed on right wrist. Patient notified of wait time. EKG completed in triage. cc3 Results shown to MD. 22:15 Patient has correct armband on for positive identification. Placed in gown. Bed in low cc3 position. Call light in reach. Side rails up X2. monitoring analyst on. Pulse ox on. NIBP on. 22:38 Triage completed. cc3 22:50 Inserted saline lock: 20 gauge in right antecubital area, using aseptic technique. cc3 Blood collected. 09/10 00:27 Juan David Pelaez MD is Referral Physician. [facility] 00:45 No provider procedures requiring assistance completed. IV discontinued, intact, cc3 bleeding controlled, No redness/swelling at site. Pressure dressing applied. Administered Medications: 09/09 23:00 Drug: GI Cocktail without - (Maalox Suspension 30 ml, Lidocaine Liquid 2 % 15 cc3 ml) Route: PO; 23:30 Follow up: Response: No adverse reaction; Pain is decreased cc3 23:07 CANCELLED (Other Intervention Used): GI Cocktail with - (Maalox Suspension 30 cc3 ml, Lidocaine Liquid 2 % 20 ml, Phenobarbital-Belladonna 10 ml) PO once Outcome: 09/10 00:27 Discharge ordered by MD. [facility] 00:45 Discharged to home ambulatory. cc3 00:45 Condition: stable 00:45 Discharge instructions given to patient, Instructed on discharge instructions, follow up and referral plans. medication usage, Demonstrated understanding of instructions, follow-up care, medications, Prescriptions given X 1. 01:03 Patient left the ED. cc3 Signatures: Randal Nicholas PA PA jmm Rivera, Mary Heribertonu Palma cc3
--- NOTE | 2019-09-10 00:28 | EDPHYS ---
Physician Documentation [facility] Name: Jim Nguyễn Jr Age: 34 yrs Sex: Male : 1985 Arrival Date: 09/09/2019 Time: 22:05 Bed 18 Private MD: Juan David Pelaez ED Physician Armando Chandra HPI: 09/09 22:28 This 34 yrs old Male presents to ER via Unassigned with complaints of Breathing jmm Difficulty. 22:28 The patient has shortness of breath at rest. Onset: The symptoms/episode began/occurred jmm just prior to arrival. Duration: The symptoms are continuous. The patient's shortness of breath is aggravated by nothing, is alleviated by elevating head. This is a 34 year old male with a history of htn, dm, that presents to the ED with complaints of chest pain, palpitations, shortness of breath beginning earlier this evening. Patient has had similar episodes in the past. Recently admitted due to chest pain. . Historical: - Allergies: 22:15 No Known Allergies; cc3 - Home Meds: 22:15 Glipizide Oral [Active]; lisinopril Oral [Active]; Metformin Oral [Active]; cc3 - PMHx: 22:15 Asthma; Diabetes - NIDDM; Hypertension; cc3 - PSHx: 22:15 Appendectomy; cc3 - Immunization history:: Adult Immunizations not up to date. - Social history:: Smoking status: Patient uses tobacco products, smokes one pack cigarettes per day. - Ebola Screening: : No symptoms or risks identified at this time. ROS: 22:28 Constitutional: Negative for fever, chills, and weight loss. jmm 22:28 Cardiovascular: Positive for chest pain. 22:28 Respiratory: Positive for shortness of breath. 22:28 All other systems are negative. Exam: 22:28 Constitutional: This is a well developed, well nourished patient who is awake, alert, jmm and in no acute distress. Head/Face: atraumatic. Eyes: EOMI, no conjunctival erythema appreciated ENT: Moist Mucus Membranes Neck: Trachea midline, Supple Chest/axilla: Normal chest wall appearance and motion. Cardiovascular: Regular rate and rhythm. No edema appreciated Respiratory: Normal respirations, no respiratory distress appreciated Abdomen/GI: Non distended, soft Back: Normal ROM Skin: General appearance color normal MS/ Extremity: Moves all extremities, no obvious deformities appreciated, no edema noted to the lower extremities Neuro: Awake and alert, normal gait Psych: Behavior is normal, Mood is normal, Patient is cooperative and pleasant Vital Signs: 22:15 BP 124 / 90; Pulse 75; Resp 15 S; Temp 98.2(O); Pulse Ox 100% on R/A; Weight 95.25 kg cc3 (R); Height 5 ft. 9 in. (175.26 cm) (R); Pain 0/10; 23:20 BP 131 / 93; Pulse 77; Resp 15 S; Pulse Ox 100% on R/A; Pain 0/10; 3 09/10 00:40 BP 125 / 89; Pulse 74; Resp 16 S; Pulse Ox 99% on R/A; Pain 0/10; 3 09/09 22:15 Body Mass Index 31.01 (95.25 kg, 175.26 cm) [facility] MDM: 09/09 22:25 Patient medically screened. [facility] 09/10 00:26 Data reviewed: vital signs, nurses notes. Counseling: I had a detailed discussion with [facility] the patient and/or guardian regarding: the historical points, exam findings, and any diagnostic results supporting the discharge/admit diagnosis, lab results, radiology results, the need for outpatient follow up, to return to the emergency department if symptoms worsen or persist or if there are any questions or concerns that arise at home. ED course: Symptoms have resolved in the ED. Patient advised to follow up with PCP and otherwise given strict return precautions. Patient understood and agrees with the plan of care. . 09/09 22:25 Order name: Basic Metabolic Panel [facility] 09/09 22:25 Order name: CBC with Diff [facility] 09/09 22:25 Order name: LFT's [facility] 09/09 22:25 Order name: Magnesium [facility] 09/09 22:25 Order name: NT PRO-BNP [facility] 09/09 22:25 Order name: PT-INR [facility] 09/09 22:25 Order name: Troponin (emerg Dept Use Only) [facility] 09/09 22:43 Order name: D-Dimer [facility] 09/09 23:09 Order name: CBC with Automated Diff; Complete Time: : [facility] 09/09 23:18 Order name: Protime (+INR); Complete Time: 23:28 [facility] 09/09 23:18 Order name: D-Dimer; Complete Time: 23:28 [facility] 09/09 23:28 Order name: Basic Metabolic Panel; Complete Time: 23:29 [facility] 09/09 23:28 Order name: Liver (Hepatic) Function; Complete Time: 23:29 [facility] 09/09 23:28 Order name: Troponin (Emerg Dept Use Only); Complete Time: 23:29 [facility] 09/09 22:25 Order name: XRAY Chest (1 view) [facility] 09/09 22:25 Order name: EKG; Complete Time: 22:26 [facility] 09/09 22:25 Order name: Cardiac monitoring; Complete Time: 23:07 [facility] 09/09 22:25 Order name: EKG - Nurse/Tech; Complete Time: 23:07 [facility] 09/09 22:25 Order name: IV Saline Lock; Complete Time: 23:07 [facility] 09/09 22:25 Order name: Labs collected and sent; Complete Time: 23:07 [facility] 09/09 22:25 Order name: O2 Per Protocol; Complete Time: 22:31 [facility] 09/09 22:25 Order name: O2 Sat Monitoring; Complete Time: 22:31 [facility] 09/09 23:28 Order name: NT PRO-BNP; Complete Time: 23:29 [facility] 09/09 23:28 Order name: Magnesium; Complete Time: 23:29 EDMS Administered Medications: 09/09 23:00 Drug: GI Cocktail without - (Maalox Suspension 30 ml, Lidocaine Liquid 2 % 15 cc3 ml) Route: PO; 23:30 Follow up: Response: No adverse reaction; Pain is decreased cc3 23:07 CANCELLED (Other Intervention Used): GI Cocktail with - (Maalox Suspension 30 cc3 ml, Lidocaine Liquid 2 % 20 ml, Phenobarbital-Belladonna 10 ml) PO once Disposition: 09/10 01:13 Co-signature as Attending Physician, Armando Chandra MD. pkl Disposition: 09/10/19 00:27 Discharged to Home. Impression: Chest pain, unspecified. - Condition is Stable. - Discharge Instructions: Nonspecific Chest Pain. - Medication Reconciliation Form, Thank You Letter, Antibiotic Education, Prescription Opioid Use, Work release form form. - Follow up: Juan David Pelaez MD; When: 2 - 3 days; Reason: Recheck today's complaints, Continuance of care, Re-evaluation by your physician. Signatures: Dispatcher [employer] EDArmando Phelan MD MD pkl Mickail, Joel, PA PA Palma Hinojosa cc3 Corrections: (The following items were deleted from the chart) 09/09 23:07 22:26 GI Cocktail with - (Maalox 30 ml, Lidocaine 20 ml, cc3 Phenobarbital-Belladonna 10 ml) PO once ordered. [facility] 23:07 23:06 GI Cocktail with - (Maalox 30 ml, Lidocaine 20 ml, cc3 Phenobarbital-Belladonna 10 ml) PO once ordered. cc3 09/10 01:03 00:27 09/10/2019 00:27 Discharged to Home. Impression: Chest pain, unspecified. cc3 Condition is Stable. Forms are Medication Reconciliation Form, Thank You Letter, Antibiotic Education, Prescription Opioid Use. Follow up: Juan David Pelaez; When: 2 - 3 days; Reason: Recheck today's complaints, Continuance of care, Re-evaluation by your physician. bárbara
--- NOTE | 2019-09-10 08:34 | RAD REPORT ---
EXAM DESCRIPTION: Edith Single View09/09/2019 10:57 pm CLINICAL HISTORY: sob COMPARISON: June 2019 FINDINGS: The lungs appear clear of acute infiltrate. The heart is normal size IMPRESSION: No acute abnormalities displayed
--- NOTE | 2019-09-10 09:39 | EKG ---
Test Date: 2019-09-09 Test Time: 22:48:34 Larry Car Operator: WALI MEASUREMENT RESULTS: Intervals: Rate: 73 IN: 160 QRSD: 86 QT: 380 QTc: 418 [place]: P: 28 IN: 160 QRS: 29 T: 28 INTERPRETIVE STATEMENTS: Normal sinus rhythm Normal ECG Compared to ECG 07/09/2019 23:14:49 Myocardial infarct finding no longer present Electronically Signed On 09-10-19 09:39:19 PREVENTION RN by Kevin Gutierrez
[2019-09-10 15:12] VITALS: BP 124/90; TEMP 98.2; O2SAT 100
== END 2019-09-10 01:03 | disposition home or self-care (01) ==
LOC: ER 22:04
DX: R07.9 Chest pain, unspecified (principal); I10 Essential (primary) hypertension; E11.9 Type 2 diabetes mellitus without complications; F17.210 Nicotine dependence, cigarettes, uncomplicated
CPT/HCPCS: 36415; 71045; 80048; 80076; 83735; 83880; 84484; 85025; 85379; 85610; 93005; 99284

== ENCOUNTER 2019-11-25 23:14 | Emergency (ER) | payer BC ==
[2019-11-25] MEDS ORDERED: NA CHLORIDE 0.9% 1,000 ML ONE (23:50)
[2019-11-26 00:17] LABS: Absolute Lymphocytes (CBC) 5.5 K/uL (0.7-4.9); Basophils % 1.1 % (0-1.3); Hematocrit 45.6 % (39.6-49.0); Lymphocytes % 40.8 % (15.3-44.8); MPV 8.6 fL (7.6-11.3); RBC Red Blood Cell Count 5.23 M/uL (4.33-5.43)
[2019-11-26 01:31] LABS: BUN Blood Urea Nitrogen 12 mg/dL (7-18); Bicarbonate 24 mmol/L (21-32); Glucose Level 163 mg/dL (74-106); Potassium 3.6 mmol/L (3.5-5.1); Sodium Level 136 mmol/L (136-145); Troponin (Emerg Dept Use Only) < 0.02 ng/mL (0.0-0.045)
--- NOTE | 2019-11-26 04:07 | EDPHYS ---
Physician Documentation [facility] Name: Jim Nguyễn Jr Age: 34 yrs Sex: Male : 1985 Arrival Date: 11/25/2019 Time: 23:17 Bed 7 Private MD: ED Physician Keegan Harrington HPI: 11/25 23:49 This 34 yrs old Male presents to ER via Ambulatory with complaints of almost rn fainted. 23:49 The patient has experienced near-syncope. Onset: The symptoms/episode began/occurred rn just prior to arrival. Duration: This was a single episode. Associated injury: The patient did not suffer any apparent associated injury. Current symptoms: Currently, the patient is not experiencing any symptoms. The patient has not experienced similar symptoms in the past. The patient has not recently seen a physician. Reports got out of bed, had chills, got lightheaded and felt like was going to pass out, drank some water and felt better, but "panicked" and came here. Reports felt tired and malaise all day yesterday, but never had pain. No focal neuro complaint. No chest pain/sob/abd pain/vomiting/diarrhea. No famhx of early cardiac problems. . Historical: - Allergies: 23:30 No Known Allergies; rr5 - Home Meds: 23:30 Glipizide Oral [Active]; lisinopril Oral [Active]; Metformin Oral [Active]; rr5 - PMHx: 23:30 Asthma; Diabetes - NIDDM; Hypertension; rr5 - PSHx: 23:30 None; rr5 - Immunization history:: Adult Immunizations not up to date. - Coronavirus screen:: The patient has NOT traveled to [place] in the past 14 days. - Social history:: Smoking status: Patient reports the use of cigarette tobacco products, 3/4 pack per day, Patient uses alcohol, occasionally. Patient/guardian denies using street drugs. - Family history:: not pertinent. - Ebola Screening: : Patient negative for fever greater than or equal to 101.5 degrees Fahrenheit, and additional compatible Ebola Virus Disease symptoms Patient denies exposure to infectious person Patient denies travel to an Ebola-affected area in the 21 days before illness onset. - Hospitalizations: : No recent hospitalization is reported. ROS: 23:49 Constitutional: Negative for fever, and weight loss, Eyes: Negative for injury, pain, rn redness, and discharge, ENT: Negative for injury, pain, and discharge, Neck: Negative for injury, pain, and swelling, Cardiovascular: Negative for chest pain, palpitations, and edema, Respiratory: Negative for shortness of breath, cough, wheezing, and pleuritic chest pain, Abdomen/GI: Negative for abdominal pain, nausea, vomiting, diarrhea, and constipation, Back: Negative for injury and pain, MS/Extremity: Negative for injury and deformity, Skin: Negative for injury, rash, and discoloration, Neuro: Negative for headache, numbness, tingling, and seizure. Exam: 23:49 Constitutional: This is a well developed, well nourished patient who is awake, alert, rn and in no acute distress. Ambulatory to room without assistance or difficulty. Head/Face: Normocephalic, atraumatic. Eyes: Pupils equal round and reactive to light, extra-ocular motions intact. Lids and lashes normal. Conjunctiva and sclera are non-icteric and not injected. Cornea within normal limits. Periorbital areas with no swelling, redness, or edema. ENT: dry MM Neck: Trachea midline, no thyromegaly or masses palpated, and no cervical lymphadenopathy. Supple, full range of motion without nuchal rigidity, or vertebral point tenderness. No Meningismus. Cardiovascular: Regular rate and rhythm. No pulse deficits. Respiratory: Lungs have equal breath sounds bilaterally, clear to auscultation. No increased work of breathing, no retractions or nasal flaring. Abdomen/GI: soft, non-tender Skin: Warm, dry MS/ Extremity: Pulses equal, no cyanosis. Neurovascular intact. Full, normal range of motion. Equal circumference. Neuro: Awake and alert, GCS 15, oriented to person, place, time, and situation. Cranial nerves II-XII grossly intact. Motor strength 5/5 in all extremities. Sensory grossly intact. Cerebellar exam normal. Normal gait. Vital Signs: 23:30 BP 123 / 79; Pulse 97; Resp 17; Temp 97.7; Pulse Ox 99% ; Weight 97.98 kg; Height 5 ft. rr5 9 in. (175.26 cm); Pain 0/10; 11/26 00:30 BP 120 / 76; Pulse 87; Resp 18; Pulse Ox 98% on R/A; lp1 01:30 BP 110 / 68; Pulse 91; Resp 18; Pulse Ox 100% on R/A; lp1 02:43 BP 131 / 77; Pulse 90; Resp 18; Pulse Ox 99% on R/A; lp1 03:55 BP 106 / 55; Pulse 85; Resp 16; Pulse Ox 99% on R/A; rr5 11/25 23:30 Body Mass Index 31.90 (97.98 kg, 175.26 cm) rr5 MDM: 11/25 23:26 Patient medically screened. rn 23:52 ED course: Pt states takes oral diabetic meds, but doesn't check blood sugar. . rn 11/26 01:44 Differential Diagnosis: cardiac arrhythmia, emotional response, vasovagal episode, rn dehydration, hyperglycemia, beginning of viral syndrome, flu. Data reviewed: vital signs, nurses notes, lab test result(s), EKG, and as a result, I will discharge patient. Counseling: I had a detailed discussion with the patient and/or guardian regarding: the historical points, exam findings, and any diagnostic results supporting the discharge/admit diagnosis, lab results, the need for outpatient follow up, to return to the emergency department if symptoms worsen or persist or if there are any questions or concerns that arise at home. Response to treatment: the patient's symptoms have markedly improved after treatment, the patient's symptoms have resolved after treatment, the patient's condition has returned to base line, the patient is now symptom free, and as a result, I will discharge patient. Special discussion: I discussed with the patient/guardian in detail that at this point there is no indication for admission to the hospital. It is understood, however, that if the symptoms persist or worsen the patient needs to return immediately for re-evaluation. ED course: Pt back to baseline, no acute findings in blood, no ischemia of ecg, will dc home with pcp f/u. . :52 ED course: Now patient reports mid/upper abd pain and nausea, will obtain ct scan rn abdomen given elevated WBC. Has had appendix removed. Mild epigastric and periumbilical tenderness.. 04:07 ED course: No change in ECG compared to previous. . rn 11/25 23:36 Order name: CBC with Diff rn 11/25 22:36 Order name: Basic Metabolic Panel rn 11/25 23:36 Order name: Troponin (emerg Dept Use Only) rn 11/25 23:36 Order name: Flu rn 11/25 23:46 Order name: Glucose, Ancillary Testing; Complete Time: 00:41 EDMS 11/26 00:37 Order name: CBC with Automated Diff; Complete Time: 00:41 EDMS 11/25 23:36 Order name: IV Start; Complete Time: 23:56 rn 11/25 23:36 Order name: EKG; Complete Time: 23:37 rn 11/25 23:36 Order name: EKG - Nurse/Tech; Complete Time: 23:56 rn 11/26 00:44 Order name: Influenza Screen (A ; Complete Time: 01:00 EDMS 11/26 01:32 Order name: Basic Metabolic Panel; Complete Time: 01:36 EDMS 11/26 01:32 Order name: Troponin (Emerg Dept Use Only); Complete Time: 01:36 EDMS 11/26 01:52 Order name: CT Abd/Pelvis - IV Contrast Only rn 11/25 23:36 Order name: Urine Dipstick-Ancillary (obtain specimen); Complete Time: 02:45 rn Administered Medications: 11/25 23:56 Drug: NS 0.9% 1000 ml Route: IV; Rate: 1000 ml; Site: left forearm; rr5 11/26 02:45 Follow up: IV Status: Completed infusion; IV Intake: 1000ml lp1 Point of Care Testing: Blood Glucose: 11/25 23:30 Blood Glucose: 224 mg/dL; rr5 Ranges: Critical Glucose Levels:Adult <50 mg/dl or >400 mg/dl <40 mg/dl or >180 mg/dl Disposition: 11/26/19 04:06 Discharged to Home. Impression: Near syncope, Hyperglycemia, unspecified, Unspecified abdominal pain. - Condition is Stable. - Discharge Instructions: Abdominal Pain, Adult, Hyperglycemia, Near-Syncope. - Medication Reconciliation Form, Thank You Letter, Antibiotic Education, Prescription Opioid Use form. - Follow up: Private Physician; When: As needed; Reason: Recheck today's complaints, Re-evaluation by your physician. - Problem is new. - Symptoms have improved. Signatures: Dispatcher [employer] EDMS Keegan Harrington MD MD rn Vicente, Ronaldo, RN RN rv Roque, Raymond, RN RN rr5 Linda, Lindsey RN lp1 Corrections: (The following items were deleted from the chart) 11/26 04:16 04:06 11/26/2019 04:06 Discharged to Home. Impression: Near syncope; Hyperglycemia, rv unspecified; Unspecified abdominal pain. Condition is Stable. Forms are Medication Reconciliation Form, Thank You Letter, Antibiotic Education, Prescription Opioid Use. Follow up: Private Physician; When: As needed; Reason: Recheck today's complaints, Re-evaluation by your physician. Problem is new. Symptoms have improved. rn
--- NOTE | 2019-11-26 04:07 | ER ---
Nurse's Notes [facility] Name: Jim Nguyễn Jr Age: 34 yrs Sex: Male : 1985 Arrival Date: 11/25/2019 Time: 23:17 Bed 7 Private MD: Diagnosis: Near syncope;Hyperglycemia, unspecified;Unspecified abdominal pain Presentation: 11/25 23:30 Presenting complaint: Patient states: suddenly I woke up having cold sweats and feeling rr5 about to pass out. I feel weak now. denies LOC. 23:30 Transition of care: patient was not received from another setting of care. Onset of rr5 symptoms was November 25, 2019. Risk Assessment: Do you want to hurt yourself or someone else? Patient reports no desire to harm self or others. Initial Sepsis Screen: Does the patient meet any 2 criteria? No. Patient's initial sepsis screen is negative. Does the patient have a suspected source of infection? No. Patient's initial sepsis screen is negative. Care prior to arrival: None. 23:30 Method Of Arrival: Ambulatory rr5 23:30 Acuity: LUCILA 3 rr5 Historical: - Allergies: 23:30 No Known Allergies; rr5 - Home Meds: 23:30 Glipizide Oral [Active]; lisinopril Oral [Active]; Metformin Oral [Active]; rr5 - PMHx: 23:30 Asthma; Diabetes - NIDDM; Hypertension; rr5 - PSHx: 23:30 None; rr5 - Immunization history:: Adult Immunizations not up to date. - Coronavirus screen:: The patient has NOT traveled to [place] in the past 14 days. - Social history:: Smoking status: Patient reports the use of cigarette tobacco products, 3/4 pack per day, Patient uses alcohol, occasionally. Patient/guardian denies using street drugs. - Family history:: not pertinent. - Ebola Screening: : Patient negative for fever greater than or equal to 101.5 degrees Fahrenheit, and additional compatible Ebola Virus Disease symptoms Patient denies exposure to infectious person Patient denies travel to an Ebola-affected area in the 21 days before illness onset. - Hospitalizations: : No recent hospitalization is reported. Screenin:43 Abuse screen: Denies threats or abuse. Denies injuries from another. Nutritional rr5 screening: No deficits noted. Tuberculosis screening: No symptoms or risk factors identified. Fall Risk IV access (20 points). Total Couch Fall Scale indicates No Risk (0-24 pts). Assessment: 23:50 General: Appears in no apparent distress. comfortable, Behavior is calm, cooperative, rr5 appropriate for age, Reports fatigue for 0-12 hours, cold sweats. Pain: Denies pain. Neuro: Level of Consciousness is awake, alert, obeys commands, Oriented to person, place, time, situation, Appropriate for age Reports feels like I am going to pass out.. 23:50 Cardiovascular: Capillary refill < 3 seconds Patient's skin is warm and dry. rr5 Respiratory: Airway is patent Respiratory effort is even, unlabored, Respiratory pattern is regular, symmetrical. GI: No signs and/or symptoms were reported involving the gastrointestinal system. : No signs and/or symptoms were reported regarding the genitourinary system. EENT: No signs and/or symptoms were reported regarding the EENT system. Derm: Skin is intact, is healthy with good turgor, Skin temperature is warm. Musculoskeletal: Circulation, motion, and sensation intact. Capillary refill < 3 seconds. 11/26 00:45 Reassessment: Patient appears in no apparent distress at this time. Patient is alert, rr5 oriented x 3, equal unlabored respirations, skin warm/dry/pink. laboratory called needs for recollect. blood extracted and sent. 02:35 Reassessment: Patient appears in no apparent distress at this time. Patient is alert, lp1 oriented x 3, equal unlabored respirations, skin warm/dry/pink. Patient returned from CT. 03:30 Reassessment: Patient appears in no apparent distress at this time. Patient is alert, rr5 oriented x 3, equal unlabored respirations, skin warm/dry/pink. awaiting for CT result. no complaints made. Vital Signs: 11/25 23:30 BP 123 / 79; Pulse 97; Resp 17; Temp 97.7; Pulse Ox 99% ; Weight 97.98 kg; Height 5 ft. rr5 9 in. (175.26 cm); Pain 0/10; 11/26 00:30 BP 120 / 76; Pulse 87; Resp 18; Pulse Ox 98% on R/A; lp1 01:30 BP 110 / 68; Pulse 91; Resp 18; Pulse Ox 100% on R/A; lp1 02:43 BP 131 / 77; Pulse 90; Resp 18; Pulse Ox 99% on R/A; lp1 03:55 BP 106 / 55; Pulse 85; Resp 16; Pulse Ox 99% on R/A; rr5 02/13 23:30 Body Mass Index 31.90 (97.98 kg, 175.26 cm) rr5 ED Course: 11/25 23:17 Patient arrived in ED. ag3 23:26 Evangelist Ambrose, RN is Primary Nurse. rr5 23:26 Keegan Harrington MD is Attending Physician. rn 23:40 Triage completed. rr5 23:43 Arm band placed on right wrist. rr5 23:43 No provider procedures requiring assistance completed. EKG done, by ED staff, reviewed rr5 by Keegan Harrington MD Flu and/or RSV swab sent to lab. 23:55 Inserted saline lock: 20 gauge in left forearm, using aseptic technique. ,using aseptic rr5 technique. inserted by [facility] tech Blood collected. 23:59 Patient has correct armband on for positive identification. Placed in gown. Bed in low rr5 position. Call light in reach. share dairy farmer on. Pulse ox on. NIBP on. 02 04:16 IV discontinued, intact, bleeding controlled, No redness/swelling at site. Pressure rv dressing applied. Administered Medications: 11/25 23:56 Drug: NS 0.9% 1000 ml Route: IV; Rate: 1000 ml; Site: left forearm; rr5 02/ 02:45 Follow up: IV Status: Completed infusion; IV Intake: 1000ml lp1 Point of Care Testing: Blood Glucose: 11/25 23:30 Blood Glucose: 224 mg/dL; rr5 Ranges: Intake: 11/26 02:45 IV: 1000ml; Total: 1000ml. lp1 Outcome: 04:06 Discharge ordered by . rn 04:16 Discharged to home ambulatory. rv 04:16 Condition: good 04:16 Discharge instructions given to patient, Instructed on discharge instructions, follow up and referral plans. Demonstrated understanding of instructions, follow-up care. 04:16 Patient left the ED. rv Signatures: Keegan Harrington MD MD rn Pena, Laura RN RN lp1 Shaheen August RN RN rv Clau Ray ag3 Evangelist Ambrose, RN RN rr5 Corrections: (The following items were deleted from the chart) 11/25 23:43 23:43 EKG done, Flu and/or RSV swab sent to lab. rr5 rr5
--- NOTE | 2019-11-26 08:22 | RAD REPORT ---
EXAM DESCRIPTION: CT - Abdomen Pelvis W Contrast - 11/26/2019 4:22 am CLINICAL HISTORY: Upper abd pain, near syncope, nausea TECHNIQUE: Contiguous axial images obtained through the abdomen and pelvis following the uneventful administration of IV contrast. Coronal and sagittal reformatted images were provided. This exam was performed according to our departmental dose-optimization program, which includes autom ated exposure control, adjustment of the mA and/or kV according to patient size and/or use of iterati ve reconstruction technique. COMPARISON: 12/13/2014 FINDINGS: Lung bases: Clear Liver: The liver is enlarged and diffusely low in density compatible with steatosis. Gallbladder and biliary system: Unremarkable Pancreas: Unremarkable Spleen: Unremarkable Adrenals: Unremarkable Kidneys: Normal renal cortical enhancement. No calculi. No hydronephrosis. Bowel: No obstruction. No appreciable mucosal thickening. Appendix: The appendix is not definitively visualized. No findings to suggest acute appendicitis. Urinary bladder: The urinary bladder is partially decompressed. Reproductive: Unremarkable as visualized Lymph nodes: No pathologically enlarged lymph nodes. Peritoneum: No focal fluid collection. No free air. Vessels: No abdominal aortic aneurysm. Abdominal wall: Tiny fat-containing umbilical hernia. Bones: Multilevel spondylosis. No acute fracture. IMPRESSION: 1. No acute process identified within the abdomen and pelvis. 2. Other findings as above. 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 The interpreting radiologist is f ully responsible for the content of the report.
--- NOTE | 2019-11-26 13:35 | EKG ---
Test Date: 2019-11-25 Test Time: 23:52:04 Fondant Machine Operator: RR MEASUREMENT RESULTS: Intervals: Rate: 85 KS: 172 QRSD: 90 QT: 376 QTc: 447 [place]: P: 55 KS: 172 QRS: 65 T: -11 INTERPRETIVE STATEMENTS: Normal sinus rhythm Inferior infarct, age undetermined Abnormal ECG Compared to ECG 09/09/2019 22:48:34 Myocardial infarct finding now present Electronically Signed On 11-26-19 13:34:16 [employer]IVIL TRANSPORTATION ENGINEER by Kevin Gutierrez
[2019-11-26 17:37] VITALS: TEMP 97.7
[2019-11-26 17:44] VITALS: O2SAT 99
[2019-11-26 17:49] VITALS: BP 106/55
== END 2019-11-26 04:16 | disposition home or self-care (01) ==
LOC: ER 23:14
DX: E11.65 Type 2 diabetes mellitus with hyperglycemia (principal); R10.9 Unspecified abdominal pain; I10 Essential (primary) hypertension
CPT/HCPCS: 96361; 93005; 85025; 80048; 36415; 82947; 84484; 87804 ×2; 74177; 96360; 99284; Q9967; J7030

== ENCOUNTER 2022-04-19 04:43 | Observation (INO) | payer BC ==
[2022-04-19 05:03] LABS: Absolute Lymphocytes (CBC) 4.6 K/uL (0.7-4.9); Hematocrit 44.8 % (39.6-49.0); Lymphocytes % 43.4 % (15.3-44.8); MCV 84.8 fL (80-100); MPV 7.6 fL (7.6-11.3); RBC Red Blood Cell Count 5.29 M/uL (4.33-5.43)
[2022-04-19] MEDS ORDERED: NA CHLORIDE 0.9% 500 ML ONE (05:07)
[2022-04-19] MEDS ORDERED: ASPIRIN 81 MG CHEWABLE TABLET ONE ×2 (05:07→05:08)
[2022-04-19 05:25] LABS: Protime INR 0.88
[2022-04-19 05:39] LABS: ALT/SGPT 73 U/L (12-78); Albumin 4.1 g/dL (3.4-5.0); Alkaline Phosphatase 117 U/L (45-117); BUN Blood Urea Nitrogen 12 mg/dL (7-18); Bicarbonate 24 mmol/L (21-32); Bilirubin Total 0.2 mg/dL (0.2-1.0); Glomerular Filtration Rate 95 ml/min (=/>90); Glucose Level 267 mg/dL (74-106); HDL Cholesterol 31 mg/dL (40-60); LDL Cholesterol, Calculated 98 mg/dL (<130); Protein, Total 8.6 g/dL (6.4-8.2); Sodium Level 131 mmol/L (136-145); Troponin High Sensitivity 23.4 pg/mL (<58.9)
[2022-04-19 05:52] LABS: NT PRO-BNP 6 pg/mL (<125)
[2022-04-19 05:53] LABS: AST/SGOT 27 U/L (15-37); Bilirubin Direct < 0.1 mg/dL (0-0.2); Magnesium 1.6 mg/dL (1.8-2.4); Potassium 3.5 mmol/L (3.5-5.1)
--- NOTE | 2022-04-19 06:19 | ER ---
Nurse's Notes [facility] – [place], [place] Name: Jim Nguyễn Jr Age: 36 yrs Sex: Male : 1985 Arrival Date: 04/19/2022 Time: 04:44 Bed 19 Private MD: Juan David Pelaez Diagnosis: Hypomagnesemia;Chest pain, unspecified;Type 2 diabetes mellitus with hyperglycemia;Essential (primary) hypertension Presentation: 04/19 04:54 Chief complaint: Patient states: started having chest pain and feeling his heart racing 5 around 0215am. Coronavirus screen: Vaccine status: Patient reports receiving the 2nd dose of the covid vaccine. Ebola Screen: No symptoms or risks identified at this time. Initial Sepsis Screen: Does the patient meet any 2 criteria? HR > 90 bpm. No. Patient's initial sepsis screen is negative. Does the patient have a suspected source of infection? No. Patient's initial sepsis screen is negative. Risk Assessment: Do you want to hurt yourself or someone else? Patient reports no desire to harm self or others. Onset of symptoms was April 19, 2022. 04:54 Method Of Arrival: Ambulatory [facility] 04:54 Acuity: LUCILA 3 5 Triage Assessment: 04:56 General: Appears in no apparent distress. Behavior is cooperative. Pain: Denies pain. 5 Neuro: Level of Consciousness is awake, alert, obeys commands, Oriented to person, place, time, situation. Cardiovascular: Capillary refill < 3 seconds Patient's skin is warm and dry. Rhythm is sinus tachycardia. Respiratory: Airway is patent Trachea midline Respiratory effort is even, unlabored. Historical: - Allergies: 04:58 No Known Allergies; sm5 - Home Meds: 04:55 Glipizide Oral [Active]; Metformin Oral [Active]; losartan oral [Active]; sm5 - PMHx: 04:55 Diabetes - NIDDM; Asthma; Hypertension; sm5 - Immunization history:: Client reports receiving the 2nd dose of the Covid vaccine. - Social history:: Smoking status: Patient reports the use of cigarette tobacco products, smokes one-half pack cigarettes per day, Patient uses alcohol, occasionally. Patient/guardian denies using street drugs, IV drugs. - Family history:: not pertinent. Screenin:57 Abuse screen: Denies threats or abuse. Denies injuries from another. Nutritional sm5 screening: No deficits noted. Tuberculosis screening: No symptoms or risk factors identified. Fall Risk None identified. Assessment: 04:57 Pain: Complains of pain in chest Pain does not radiate. Pain began 3 hours ago. sm5 07:28 General: Appears in no apparent distress. comfortable, Behavior is calm, cooperative, jd3 appropriate for age. Pain: Denies pain. Neuro: Kate Agitation-Sedation Scale (RASS): 0 - Alert and Calm Level of Consciousness is awake, alert, obeys commands, Oriented to person, place, time, situation. Cardiovascular: Reports pt reporting on and off chest pain. no chest pain reported at this time. Heart tones S1 S2 present Capillary refill < 3 seconds Patient's skin is warm and dry. Rhythm is regular. Respiratory: Airway is patent Respiratory effort is even, unlabored, Respiratory pattern is regular, symmetrical, Breath sounds are clear bilaterally. Denies cough, shortness of breath. GI: No signs and/or symptoms were reported involving the gastrointestinal system. : No signs and/or symptoms were reported regarding the genitourinary system. EENT: No signs and/or symptoms were reported regarding the EENT system. Derm: No signs and/or symptoms reported regarding the dermatologic system. Musculoskeletal: Circulation, motion, and sensation intact. Range of motion: intact in all extremities, Reports soreness in right shoulder. 09:00 Reassessment: Patient appears in no apparent distress at this time. Patient and/or jd3 family updated on plan of care and expected duration. Pain level reassessed. Patient is alert, oriented x 3, equal unlabored respirations, skin warm/dry/pink. hospitalist at bedside. 10:34 Reassessment: Patient appears in no apparent distress at this time. Patient and/or jd3 family updated on plan of care and expected duration. Pain level reassessed. Patient is alert, oriented x 3, equal unlabored respirations, skin warm/dry/pink. awaiting admission. 11:47 Reassessment: Patient appears in no apparent distress at this time. Patient and/or jd3 family updated on plan of care and expected duration. Pain level reassessed. Patient is alert, oriented x 3, equal unlabored respirations, skin warm/dry/pink. 13:00 Reassessment: Patient appears in no apparent distress at this time. Patient and/or jd3 family updated on plan of care and expected duration. Pain level reassessed. Patient is alert, oriented x 3, equal unlabored respirations, skin warm/dry/pink. awaiting admission. report attempt made and nurse was busy at the time. 14:55 Reassessment: Patient appears in no apparent distress at this time. Patient and/or jd3 family updated on plan of care and expected duration. Pain level reassessed. Patient is alert, oriented x 3, equal unlabored respirations, skin warm/dry/pink. report given to Yamilex ESQUEDA. Vital Signs: 04:54 BP 150 / 103; Pulse 124; Resp 18; Temp 98.1(O); Pulse Ox 97% on R/A; Weight 94.35 kg; sm5 Height 5 ft. 9 in. (175.26 cm); Pain 0/10; 06:17 BP 120 / 73; Pulse 105; Resp 21; Pulse Ox 98% on R/A; sm5 07:27 BP 123 / 80; Pulse 97; Resp 18 S; Pulse Ox 99% on R/A; jd3 10:34 BP 99 / 67; Pulse 70; Resp 18 S; Pulse Ox 99% on R/A; jd3 11:47 BP 97 / 68; Pulse 73; Resp 18 S; Pulse Ox 100% on R/A; jd3 13:29 BP 100 / 60; Pulse 77; Resp 15 S; Pulse Ox 100% on R/A; jd3 04:54 Body Mass Index 30.72 (94.35 kg, 175.26 cm) 5 ED Course: 04:44 Patient arrived in ED. mr 04:45 Juan Davdi Pelaez MD is Private Physician. mr 04:45 Germain Quick MD is Attending Physician. [facility] 04:48 Johanna Rainey, YIN is Primary Nurse. kd3 04:55 Triage completed. 5 04:57 Arm band placed on right wrist. EKG completed in triage. Results shown to MD. 5 04:57 Patient has correct armband on for positive identification. Placed in gown. Bed in low sm5 position. Call light in reach. Side rails up X2. Client placed on continuous cardiac and pulse oximetry monitoring. NIBP monitoring applied. 04:57 Inserted saline lock: 22 gauge in right antecubital area, using aseptic technique. sm5 Blood collected. Patient maintains SpO2 saturation greater than 95% on room air. 05:05 XRAY Chest (1 view) In Process Unspecified. EDMS 05:53 Notified ED physician of. 5 06:18 Jose M Han MD is Hospitalizing Provider. [facility] 06:21 SARS-COV-2 RT PCR (Document "Date of Onset" if Symptomatic) Sent. ke1 14:55 No provider procedures requiring assistance completed. Patient admitted, IV remains in jd3 place. Administered Medications: 05:03 Drug: Aspirin Chewable Tablet 324 mg Route: PO; sm5 05:03 Drug: NS 0.9% 500 ml Route: IV; Rate: bolus; Site: right antecubital; 5 06:44 Drug: Magnesium Sulfate 1 grams Route: IVPB; Infused Over: 1 hrs; Site: right sm5 antecubital; 06:44 Drug: Lovenox (enoxaparin) 1 mg/kg Route: Sub-Q; Site: right upper abdomen; 5 06:44 Drug: Lopressor (metoprolol TARTRATE)) 25 mg Route: PO; 5 06:47 Drug: NS 0.9% 1000 ml Route: IV; Rate: 125 ml/hr; Site: right antecubital; 5 Medication: 04:57 VIS not applicable for this client. 5 Outcome: 06:19 Decision to Hospitalize by Provider. [facility] 14:56 Admitted to Med/surg accompanied by tech, via wheelchair, room 206, with chart, Report jd3 called to Yamilex ESQUEDA 14:56 Condition: stable 14:56 Instructed on the need for admit. 15:09 Patient left the ED. jd3 Signatures: Dispatcher [employer] EDMS Germain Quick MD MD cha Rivera, Mary mr PatelSalty RN RN aced3 Caron Miranda tw5 Johanna Rainey RN RN kd3 Angelika Dale RN RN sm5 Alban Paniagua RN RN ke1
--- NOTE | 2022-04-19 06:19 | EDPHYS ---
Physician Documentation [facility] Name: Jim Nguyễn Jr Age: 36 yrs Sex: Male : 1985 Arrival Date: 04/19/2022 Time: 04:44 Bed 19 Private MD: Juan David Pelaez ED Physician Germain Quick HPI: 04/19 06:12 This 36 yrs old Male presents to ER via Ambulatory with complaints of Chest Pain. [facility] 06:12 The patient or guardian reports chest pain that is located primarily in the substernal sudhakar area, anterior chest wall. The pain does not radiate. Associated signs and symptoms: Pertinent positives: lightheadedness, palpitations, shortness of breath. The chest pain is described as a pressure. Duration: The patient or guardian reports a single episode, that is still ongoing. Modifying factors: The symptoms are alleviated by nothing. the symptoms are aggravated by nothing. Severity of pain: At its worst the pain was mild in the emergency department the pain is unchanged. The patient has not experienced similar symptoms in the past. Historical: - Allergies: 04:58 No Known Allergies; sm5 - Home Meds: 04:55 Glipizide Oral [Active]; Metformin Oral [Active]; losartan oral [Active]; sm5 - PMHx: 04:55 Diabetes - NIDDM; Asthma; Hypertension; sm5 - Immunization history:: Client reports receiving the 2nd dose of the Covid vaccine. - Social history:: Smoking status: Patient reports the use of cigarette tobacco products, smokes one-half pack cigarettes per day, Patient uses alcohol, occasionally. Patient/guardian denies using street drugs, IV drugs. - Family history:: not pertinent. ROS: 06:12 Constitutional: Negative for fever, chills, and weight loss, Eyes: Negative for injury, sudhakar pain, redness, and discharge, ENT: Negative for injury, pain, and discharge, Neck: Negative for injury, pain, and swelling, Respiratory: Negative for shortness of breath, cough, wheezing, and pleuritic chest pain, Abdomen/GI: Negative for abdominal pain, nausea, vomiting, diarrhea, and constipation, Back: Negative for injury and pain, : Negative for injury, bleeding, discharge, and swelling, MS/Extremity: Negative for injury and deformity, Skin: Negative for injury, rash, and discoloration, Neuro: Negative for headache, weakness, numbness, tingling, and seizure, Psych: Negative for depression, anxiety, suicide ideation, homicidal ideation, and hallucinations, Allergy/Immunology: Negative for hives, rash, and allergies, Endocrine: Negative for neck swelling, polydipsia, polyuria, polyphagia, and marked weight changes, Hematologic/Lymphatic: Negative for swollen nodes, abnormal bleeding, and unusual bruising. 06:12 Cardiovascular: Positive for chest pain, of the chest. Exam: 06:12 Constitutional: This is a well developed, well nourished patient who is awake, alert, sudhakar and in no acute distress. Head/Face: Normocephalic, atraumatic. Eyes: Pupils equal round and reactive to light, extra-ocular motions intact. Lids and lashes normal. Conjunctiva and sclera are non-icteric and not injected. Cornea within normal limits. Periorbital areas with no swelling, redness, or edema. ENT: Nares patent. No nasal discharge, no septal abnormalities noted. Tympanic membranes are normal and external auditory canals are clear. Oropharynx with no redness, swelling, or masses, exudates, or evidence of obstruction, uvula midline. Mucous membranes moist. Neck: Trachea midline, no thyromegaly or masses palpated, and no cervical lymphadenopathy. Supple, full range of motion without nuchal rigidity, or vertebral point tenderness. No Meningismus. Chest/axilla: Normal chest wall appearance and motion. Nontender with no deformity. No lesions are appreciated. Cardiovascular: Regular rate and rhythm with a normal S1 and S2. No gallops, murmurs, or rubs. Normal PMI, no JVD. No pulse deficits. Respiratory: Lungs have equal breath sounds bilaterally, clear to auscultation and percussion. No rales, rhonchi or wheezes noted. No increased work of breathing, no retractions or nasal flaring. Abdomen/GI: Soft, non-tender, with normal bowel sounds. No distension or tympany. No guarding or rebound. No evidence of tenderness throughout. Back: No spinal tenderness. No costovertebral tenderness. Full range of motion. Male : Normal genitalia with no discharge or lesions. Skin: Warm, dry with normal turgor. Normal color with no rashes, no lesions, and no evidence of cellulitis. MS/ Extremity: Pulses equal, no cyanosis. Neurovascular intact. Full, normal range of motion. Neuro: Awake and alert, GCS 15, oriented to person, place, time, and situation. Cranial nerves II-XII grossly intact. Motor strength 5/5 in all extremities. Sensory grossly intact. Cerebellar exam normal. Normal gait. Psych: Awake, alert, with orientation to person, place and time. Behavior, mood, and affect are within normal limits. 06:12 ECG was reviewed by the Attending Physician. Vital Signs: 04:54 BP 150 / 103; Pulse 124; Resp 18; Temp 98.1(O); Pulse Ox 97% on R/A; Weight 94.35 kg; 5 Height 5 ft. 9 in. (175.26 cm); Pain 0/10; 06:17 BP 120 / 73; Pulse 105; Resp 21; Pulse Ox 98% on R/A; 5 07:27 BP 123 / 80; Pulse 97; Resp 18 S; Pulse Ox 99% on R/A; jd3 10:34 BP 99 / 67; Pulse 70; Resp 18 S; Pulse Ox 99% on R/A; jd3 11:47 BP 97 / 68; Pulse 73; Resp 18 S; Pulse Ox 100% on R/A; jd3 13:29 BP 100 / 60; Pulse 77; Resp 15 S; Pulse Ox 100% on R/A; jd3 04:54 Body Mass Index 30.72 (94.35 kg, 175.26 cm) [facility] MDM: 04:45 Patient medically screened. sudhakar 06:15 Differential diagnosis: abnormal EKG, acute myocardial infarction, anxiety, chest wall sudhakar pain, cholecystitis, costochondritis, hiatal hernia, myocarditis, pancreatitis, pericarditis, pneumonia, pulmonary embolus, stable angina, unstable angina. HEART Score: History: Moderately Suspicious (1), ECG: Non specific repolarization disturbance / LBTB / PM (1), Age: < or = 45 years (0), Risk Factors: > or = 3 Risk factors for atherosclerotic disease (2), [Hypercholesterolemia] [Hypertension] [DM] [Active Smoker] [+ Family HX] Troponin: < or = 1 x Normal Limit (0), Total Score = 4. The patient's deep vein thrombosis risk score was calculated as follows: Total Score: 0. This patient was found to be at low risk for a deep vein thrombosis by using the Well's assessment criteria. The patient's pulmonary embolism risk score was calculated as follows: the patients heart rate is greater than 100 beats per minute (1.5 Pts) Total Score: 0-2 points. This patient was found to be at low risk for a pulmonary embolism by using the Well's assessment criteria. MENDY Risk Score: 1 - Three or more CAD risk factors, [Family Hx], [HTN], [Elevated Cholesterol], [DM], [Active Smoker], TOTAL SCORE =. Data reviewed: vital signs, nurses notes, lab test result(s), EKG, radiologic studies, plain films. Data interpreted: caregiver services home: rate is 124 beats/min, rhythm is regular, Pulse oximetry: is 98 %. Test interpretation: by ED physician or midlevel provider: ECG, plain radiologic studies. 04/19 04:46 Order name: Basic Metabolic Panel; Complete Time: 06:07 [facility] 04/19 04:46 Order name: CBC with Diff; Complete Time: 06: [facility] 04/19 04:46 Order name: LFT's; Complete Time: 06: [facility] 04/19 04:46 Order name: Magnesium; Complete Time: 06: [facility] 04/19 04:46 Order name: NT PRO-BNP; Complete Time: 06: [facility] 04/19 04:46 Order name: PT-INR; Complete Time: 06: [facility] 04/19 04:46 Order name: Troponin HS; Complete Time: 06:07 [facility] 04/19 04:46 Order name: Lipid Profile; Complete Time: 06:07 [facility] 04/19 05:15 Order name: Alcohol Level; Complete Time: 08:05 [facility] 04/19 05:15 Order name: TSH; Complete Time: 08:05 [facility] 04/19 05:15 Order name: UDS; Complete Time: 08:05 [facility] 04/19 05:15 Order name: Asprin; Complete Time: 06:11 [facility] 04/19 05:15 Order name: Acetaminophen; Complete Time: 08:05 [facility] 04/19 06:10 Order name: SARS-COV-2 RT PCR (Document "Date of Onset" if Symptomatic); Complete Time: [facility] 08:04/19 04:46 Order name: XRAY Chest (1 view) [facility] 04/19 04:46 Order name: EKG; Complete Time: 04:46 [facility] 04/19 04:46 Order name: Cardiac monitoring; Complete Time: 04:58 [facility] 04/19 04:46 Order name: EKG - Nurse/Tech; Complete Time: 04:58 [facility] 04/19 04:46 Order name: IV Saline Lock; Complete Time: 04:58 [facility] 04/19 04:46 Order name: Labs collected and sent; Complete Time: 04:58 [facility] 04/19 04:46 Order name: O2 Per Protocol; Complete Time: 04:58 [facility] 04/19 06:59 Order name: D-Dimer; Complete Time: 08:05 [facility] 04/19 06:59 Order name: Hemoglobin A1c [facility] 04/19 07:35 Order name: Troponin High Sensitivity [facility] 04/19 04:46 Order name: O2 Sat Monitoring; Complete Time: 04:58 [facility] EC:12 Rate is 116 beats/min. Rhythm is regular. QRS [place] is Normal. CA interval is normal. sudhakar QRS interval is normal. QT interval is normal. No Q waves. T waves are Normal. No ST changes noted. Clinical impression: Sinus tachycardia and No evidence of ischemia. Interpreted by me. Reviewed by me. Administered Medications: 05:03 Drug: Aspirin Chewable Tablet 324 mg Route: PO; 5 05:03 Drug: NS 0.9% 500 ml Route: IV; Rate: bolus; Site: right antecubital; 5 06:44 Drug: Magnesium Sulfate 1 grams Route: IVPB; Infused Over: 1 hrs; Site: right sm5 antecubital; 06:44 Drug: Lovenox (enoxaparin) 1 mg/kg Route: Sub-Q; Site: right upper abdomen; sm5 06:44 Drug: Lopressor (metoprolol TARTRATE)) 25 mg Route: PO; sm5 06:47 Drug: NS 0.9% 1000 ml Route: IV; Rate: 125 ml/hr; Site: right antecubital; 5 Disposition Summary: 04/19/22 06:19 Hospitalization Ordered Hospitalization Status: Observation sudhakar Provider: Jose M Han cha Location: Telemetry/MedSurg (observation) sudhakar Condition: Fair sudhakar Problem: new sudhakar Symptoms: have improved sudhakar Bed/Room Type: Standard sudhakar Room Assignment: 206(04/19/22 12:20) em1 Diagnosis - Hypomagnesemia sudhakar - Chest pain, unspecified sudhakar - Type 2 diabetes mellitus with hyperglycemia sudhakar - Essential (primary) hypertension sudhakar Forms: - Medication Reconciliation Form sudhakar - SBAR form sudhakar Signatures: Dispatcher [employer] Germain Saleem MD MD cha Martinez, Eric em1 Angelika Dale RN RN sm5 Corrections: (The following items were deleted from the chart) 12:20 06:19 sudhakar em1
[2022-04-19] MEDS ORDERED: NA CHLORIDE 0.9% 1,000 ML ONE (06:39)
[2022-04-19] MEDS ORDERED: ENOXAPARIN 100 MG/ML SYR SQ ONE (06:39)
[2022-04-19] MEDS ORDERED: METOPROLOL TAR 25 MG TAB ONE (06:39)
[2022-04-19] MEDS ORDERED: MAGNESIUM SULFATE 1 gm IVPB 1 GM/100 ML BAG IV ONE (06:39)
[2022-04-19 06:45] LABS: Barbiturates NEGATIVE (NEGATIVE); Benzodiazepines NEGATIVE (NEGATIVE); Cocaine NEGATIVE (NEGATIVE); METHAMPHETAM NEGATIVE (NEGATIVE); Methadone NEGATIVE (NEGATIVE); Opiates NEGATIVE (NEGATIVE); Phencyclidine NEGATIVE (NEGATIVE); THC Cannibis NEGATIVE (NEGATIVE)
[2022-04-19] MEDS ORDERED: Magnesium Sulfate 2gm IVPB 2 G/50 ML BAG IV ONE (06:57)
[2022-04-19] MEDS ORDERED: POTASSIUM CL SA 10 MEQ TAB PO ONE (06:57)
--- NOTE | 2022-04-19 07:34 | P.HP ---
Certification for Inpatient Patient admitted to: Observation With expected LOS: <2 Midnights Patient will require the following post-hospital care: None Practitioner: I am a practitioner with admitting privileges, knowledge of patient current condition, hospital course, and medical plan of care. Services: Services provided to patient in accordance with Admission requirements found in Title 42 Section 412.3 of the Code of Federal Regulations Patient History Date of Service: 04/19/22 Primary Care Provider: Dr. Roldan Reason for admission: Chest Pain History of Present Illness: Mr. Jim Sims is a pleasant 36 year old male who has a past medical history of type II diabetes mellitus, hypertension, and gastroesophageal reflux disease who presents to the [facility] Emergency Department for chest pain. He reports that, around 2:15 AM this morning, he awoke from sleep with suddenonset chest pain. He states that the pain is in his leftmiddle chest and he characterizes the pain as heaviness. He denies any obvious inciting or alleviating factors. He states that the pain is radiating to his right shoulder. He grades the pain a 6/10 in severity. He states that he has been evaluated for this pain in the past, and told it was acid reflux. He has not tried taking any medications for his symptoms. On review of systems, he denies any fevers, chills, headaches, dizziness, syncope, palpitations, shortness of breath, wheezing, cough, abdominal pain, nausea/vomiting, diarrhea, constipation, hematochezia, melena, dysuria, hematuria, myalgia, or any other symptoms. He presented to the Emergency Department for further evaluation. Upon presentation, his vital signs were notable for a heart rate of 124 bpm and a blood pressure of 150/103. His laboratory studies were notable for a glucose of 267. EKG revealed sinus tachycardia without STEMI criteria. Chest x-ray revealed, "no acute chest process." In the Emergency Department, he was given metoprolol tartrate, magnesium sulfate, aspirin 325 mg, 1.5 L Normal Saline, and 1mg/kg of enoxaparin. He was admitted to the General Internal Medicine service for further evaluation. Allergies No Known Drug Allergies Allergy (Verified 07/10/19 03:39) Unknown No Known Allergi Allergy (Uncoded 02/09/17 13:00) Unknown Shellfish Containing Products Allergy (Uncoded 07/10/19 03:39) Unknown Home medications list reviewed: Yes Home Medications: Glimepiride 1 tab PO BID 04/19/22 Losartan/Hydrochlorothiazide [Losartan-Hctz 100-25 mg Tab] 1 tab PO DAILY 04/19/22 Metformin ER [Glucophage ER*] 2 tab PO BID 04/19/22 Omeprazole [Prilosec] 1 cap PO DAILY 04/19/22 Trazodone HCl 1 tab PO BEDTIME PRN 04/19/22 - Past Medical/Surgical History Diabetic: Yes -: DM II -: obesity -: tobacco abuse -: HTN -: appendectomy - Family History Father -: Hypertension, Diabetes, Cancer Mother -: Hypertension, Diabetes, Cancer Brother -: Hypertension, Diabetes Sister -: Hypertension, Diabetes - Social History Smoking Status: Light Tobacco smoker (1-9 cigarettes/day) Alcohol use: Yes CD- Drugs: No Caffeine use: Yes Review of Systems General: Unremarkable Eyes: Unremarkable ENT: Unremarkable Respiratory: Unremarkable Cardiovascular: Chest Pain Gastrointestinal: Unremarkable Genitourinary: Unremarkable Musculoskeletal: Unremarkable Integumentary: Unremarkable Neurological: Unremarkable Physical Examination - Vital Signs Temperature: 98.1 F Blood Pressure: 150/103 Pulse: 124 Respirations: 18 Pulse Ox (%): 97 - Physical Exam General: Alert, In no apparent distress, Oriented x3 HEENT: Atraumatic, Mucous membr. moist/pink Neck: Supple, Without JVD or thyroid abnormality Respiratory: Clear to auscultation bilaterally, Normal air movement Cardiovascular: No edema, Normal S1 S2, No gallops, No rubs, No murmurs, Other (tachycardic rate, regular rhythm) Gastrointestinal: Normal bowel sounds, Soft and benign, No tenderness, No rebound, No guarding Musculoskeletal: No clubbing, No swelling Integumentary: No rashes Neurological: Normal speech, Normal affect - Studies Laboratory Data (last 24 hrs) 04/19/22 04:58: PT 9.6, INR 0.88 04/19/22 04:58: WBC 10.6, Hgb 15.7, Hct 44.8, Plt Count 378 04/19/22 04:58: Sodium 131 L, Potassium 3.5, BUN 12, Creatinine 1.04, Glucose 267 H, Magnesium 1.6 L, Total Bilirubin 0.2, AST 27, ALT 73, Alkaline Phosphatase 117, Triglycerides 296 H, Cholesterol 188, HDL Cholesterol 31 L, Cholesterol/HDL Ratio 6.06 Assessment and Plan - Plan # Chest Pain with Multiple Cardiac Risk Factors # Gastroesophageal Reflux Disease # Obesity - BMI 31.9 kg/m2 Based on history and physical examination, cannot exclude ischemia as a possible etiology of his chest pain. Other differential diagnoses include, but are not limited to, pulmonary embolism, pericarditis, myocarditis, gastroesophageal reflux disease, gastritis/esophagitis, esophageal spasms, pleuritic chest pain, and musculoskeletal chest pain (i.e. costochondritis). - Evaluation thus far: - EKG: sinus tachycardia without STEMI criteria - Serial HS troponin: 23.4 -> 21.7 - Ordered transthoracic echocardiogram = pending - Chest x-ray = "no acute chest process" - D-dimer = 283 - Management plan: - Admit under observation - Trend troponin - S/P aspirin 324 mg PO x 1 in ED - PRN Symptom control If cardiac ischemia confirmed, plan to start aspirin, beta-nurys, and statin as tolerated # Hypertension - Continue home losartan # Hyperglycemia in Type II Diabetes Mellitus - Hgb A1c = 7.5 % - Ordered correction scale insulin - Hold home metformin, glipizide while hospitalized # Tobacco Use Disorder - Extensive tobacco cessation counseling provided Jose M Han M.D. Discharge Plan: Home Plan to discharge in: 24 Hours - Advance Directives Does patient have a Living Will: No Does patient have a Durable POA for Healthcare: No - Code Status/Comfort Care Code Status Assessed: Yes Code Status: Full Code
[2022-04-19] MEDS ORDERED: ACETAMINOPHEN 500 MG TAB PO PRN (12:19)
[2022-04-19] MEDS: INSULIN -REGULAR HUMAN 50 UNIT/0.5 ML ML SQ SCH ×3 (12:19→21:00)
--- NOTE | 2022-04-19 12:25 | RAD REPORT ---
EXAM DESCRIPTION: Chest Radiography COMPARISON: None. CLINICAL HISTORY: [facility] MAIN CHEST PAIN FINDINGS: A single AP view of the chest demonstrates a normal cardiomediastinal silhouette. No pneumothorax or pleural effusion. No consolidation or pulmonary edema. Osseous structures are intact. IMPRESSION: No acute chest process. Electronically signed by: Atul Borrego MD 04/19/2022 5:08 AM CDT Due to temporary technical issues with the PACS/Fluency reporting system, reports are being signed by the in house radiologists without review as a courtesy to insure prompt reporting. The interpreting radiologist is fully responsible for the content of the report.
[2022-04-19 15:29] VITALS: O2SAT 100
[2022-04-19 18:06] VITALS: BMI 31.8
[2022-04-20 04:16] LABS: Absolute Lymphocytes (CBC) 3.4 K/uL (0.7-4.9); Hematocrit 40.5 % (39.6-49.0); Lymphocytes % 47.2 % (15.3-44.8); MCV 85.5 fL (80-100); MPV 7.5 fL (7.6-11.3); RBC Red Blood Cell Count 4.74 M/uL (4.33-5.43)
[2022-04-20 04:41] LABS: Albumin 3.3 g/dL (3.4-5.0); Bilirubin Total 0.3 mg/dL (0.2-1.0); Potassium 3.6 mmol/L (3.5-5.1); Protein, Total 7.1 g/dL (6.4-8.2)
[2022-04-20] MEDS ORDERED: POTASSIUM 25 MEQ EFFERV TAB PO ONE ×2 (06:18→09:00)
--- NOTE | 2022-04-20 06:45 | P.DS ---
Admission Date: 04/19/22 Discharge Date: 04/20/22 Primary Care Provider: Dr. Roldan Disposition: ROUTINE DISCHARGE Discharge Condition: GOOD Reason for Admission: Chest Pain Hospital Course: DIAGNOSES: # Chest Pain suspect non-cardiac # Hyperglycemia in Type II Diabetes Mellitus # Gastroesophageal Reflux Disease # Obesity - BMI 31.9 kg/m2 # Hypertension # Tobacco Use Disorder HOSPITAL COURSE: Mr. Jim Sims is a pleasant 36 year old male who has a past medical history of type II diabetes mellitus, hypertension, and gastroesophageal reflux disease who was admitted to the [facility] on 04/19/2022 for chest pain. Upon presentation, his vital signs were notable for a heart rate of 124 bpm and a blood pressure of 150/103. His laboratory studies were notable for a glucose of 267. EKG revealed sinus tachycardia without STEMI criteria. Chest x-ray revealed, "no acute chest process." His troponin trend was 23.4 to 21.7 to 21.3, respectively. Cardiology was consulted and he was evaluated by Dr. Levy. A transthoracic echocardiogram was performed but the read is pending at the time of discharge. Dr. Levy has cleared him for discharge and would like him to follow-up with him in clinic in 1-2 weeks. On 04/20/2022, he was seen on morning rounds and deemed medically stable for discharge. He was discharged with instructions to schedule follow-up appointments with his PCP in 3-5 days and cardiology (Dr. Levy) in 1-2 weeks. He was given the opportunity to ask questions and reported no further questions. Furthermore, all questions were answered to the best of my ability. Today, I personally spent 20 minutes with him, of which greater than 50% of the time was spent in patient education, counseling, and coordination of care as described above. Vital Signs/Physical Exam: Temp Pulse Resp BP Pulse Ox 97.5 F 74 15 133/63 99 04/20/22 05:11 04/20/22 05:11 04/20/22 05:11 04/20/22 05:11 04/20/22 05:11 General: Alert, In no apparent distress, Oriented x3 HEENT: Atraumatic, Mucous membr. moist/pink, EOMI Neck: Supple, Without JVD or thyroid abnormality Respiratory: Clear to auscultation bilaterally, Normal air movement Cardiovascular: No edema, Regular rate/rhythm, Normal S1 S2, No gallops, No rubs, No murmurs Gastrointestinal: Normal bowel sounds, Soft and benign, No tenderness, No rebound, No guarding Musculoskeletal: No clubbing Integumentary: No rashes Neurological: Normal speech, Normal affect Laboratory Data at Discharge: WBC 7.2 K/uL (4.3-10.9) D 04/20/22 03:47 Hgb 13.9 g/dL (13.6-17.9) 04/20/22 03:47 Hct 40.5 % (39.6-49.0) 04/20/22 03:47 Plt Count 317 K/uL (152-406) 04/20/22 03:47 PT 9.6 SECONDS (9.5-12.5) 04/19/22 04:58 INR 0.88 04/19/22 04:58 Sodium 136 mmol/L (136-145) 04/20/22 03:47 Potassium Cancelled 04/20/22 Unknown BUN 12 mg/dL (7-18) 04/20/22 03:47 Creatinine 0.74 mg/dL (0.55-1.3) 04/20/22 03:47 Glucose 173 mg/dL (74-106) H 04/20/22 03:47 Magnesium 1.6 mg/dL (1.8-2.4) L 04/19/22 04:58 Total Bilirubin 0.3 mg/dL (0.2-1.0) 04/20/22 03:47 AST 16 U/L (15-37) 04/20/22 03:47 ALT 59 U/L (12-78) 04/20/22 03:47 Alkaline Phosphatase 68 U/L (45-117) 04/20/22 03:47 Triglycerides 296 mg/dL (<150) H 04/19/22 04:58 Cholesterol 188 mg/dL (<200) 04/19/22 04:58 HDL Cholesterol 31 mg/dL (40-60) L 04/19/22 04:58 Cholesterol/HDL Ratio 6.06 04/19/22 04:58 Home Medications: Glimepiride 1 tab PO BID 04/19/22 Losartan/Hydrochlorothiazide [Losartan-Hctz 100-25 mg Tab] 1 tab PO DAILY 04/19/22 Metformin ER [Glucophage ER*] 2 tab PO BID 04/19/22 Omeprazole [Prilosec] 1 cap PO DAILY 04/19/22 Trazodone HCl 1 tab PO BEDTIME PRN 04/19/22 Physician Discharge Instructions: 1. Please schedule a follow-up appointment with your PCP in 3-5 days. 2. Please schedule a follow-up appointment with Cardiology (Dr. Levy) in 1-2 weeks. Diet: ADA Activity: Ad catie Followup: Juan David Pelaez MD [Primary Care Provider] - (Call to schedule appointment.) Forrest Levy MD [ACTIVE - CAN ADMIT] - Time spent managing pt's care (in minutes): 20
[2022-04-20] MEDS: INSULIN -REGULAR HUMAN 50 UNIT/0.5 ML ML SQ SCH ×2 (07:30→12:06)
[2022-04-20] MEDS ORDERED: ENOXAPARIN 40 MG/0.4 ML SQ SCH (09:00)
[2022-04-20 12:57] VITALS: BP 125/76; TEMP 97.4
--- NOTE | 2022-04-22 07:25 | ECHO ---
HEIGHT: 5 ft 9 in WEIGHT: 216 lb 0 oz DATE OF STUDY: 04/19/[address]: Jose M Han MD 2-DIMENSIONAL: YES M.MODE: YES DOPPLER: YES COLOR FLOW: YES TDS: NO PORTABLE: YES DEFINITY: NO BUBBLE STUDY: NO DIAGNOSIS: CHEST PAIN CARDIAC HISTORY: CATHERIZATION: NO SURGERY: NO PROSTHETIC VALVE: NO PACEMAKER: NO MEASUREMENTS (cm) DIASTOLIC (NORMALS) SYSTOLIC (NORMALS) IVSd 1.0 (0.6-1.2) LA Diam 3.9 (1.9-4.0) LVEF 66% LVIDd 4.7 (3.5-5.7) LVIDs 3.0 (2.0-3.5) %FS 36% LVPWd 1.1 (0.6-1.2) Ao Diam 2.8 (2.0-3.7) 2 DIMENSIONAL ASSESSMENT: RIGHT ATRIUM: NORMAL LEFT ATRIUM: NORMAL RIGHT VENTRICLE: NORMAL LEFT VENTRICLE: NORMAL TRICUSPID VALVE: NORMAL MITRAL VALVE: NORMAL PULMONIC VALVE: NORMAL AORTIC VALVE: NORMAL PERICARDIAL EFFUSION: NONE AORTIC ROOT: NORMAL LEFT VENTRICULAR WALL MOTION: NORMAL DOPPLER/COLOR FLOW: MILD TRICUSPID AND MITRAL REGURGITATION. COMMENTS: NORMAL LEFT VENTRICULAR EJECTION FRACTION 60-65%. NORMAL DIASTOLIC FUNCTION. NORMAL WALL MOTION. MILD TRICUSPID AND MITRAL REGURGITATION. TECHNOLOGIST: Jennifer CHARLES
--- NOTE | 2022-04-22 13:58 | EKG ---
Test Date: 2022-04-19 Test Time: 04:57:22 Water Pollution Control Technician: SONAM MEASUREMENT RESULTS: Intervals: Rate: 116 AL: 158 QRSD: 84 QT: 330 QTc: 458 Carrington: P: 63 AL: 158 QRS: 62 T: 48 INTERPRETIVE STATEMENTS: Sinus tachycardia Otherwise normal ECG Compared to ECG 11/25/2019 23:52:04 Sinus rhythm no longer present Myocardial infarct finding no longer present Electronically Signed On 04-22-22 13:50:36 CDT by Forrest Levy
== END 2022-04-20 15:35 | disposition home or self-care (01) ==
LOC: ER 04:43 → ERHOLD 07:58 → 2ND 14:55
PROVIDERS: ADMIT Internal Medicine; ATTEND Internal Medicine
DX: R07.89 Other chest pain (principal); I10 Essential (primary) hypertension; E11.65 Type 2 diabetes mellitus with hyperglycemia; K21.9 Gastro-esophageal reflux disease without esophagitis; R00.0 Tachycardia, unspecified; E83.42 Hypomagnesemia; E66.9 Obesity, unspecified; Z68.31 Body mass index [BMI] 31.0-31.9, adult; F17.210 Nicotine dependence, cigarettes, uncomplicated; Z20.822 Contact with and (suspected) exposure to COVID-19; Z79.84 Long term (current) use of oral hypoglycemic drugs; Z91.013 Allergy to seafood; Z82.49 Family history of ischemic heart disease and other diseases of the circulatory system; Z83.3 Family history of diabetes mellitus; Z80.9 Family history of malignant neoplasm, unspecified
CPT/HCPCS: 93005; 93306; 85025 ×2; 80048; 36415 ×2; 80320; 83735; 80329 ×2; 85610; 80061; 82947 ×4; 85379; 80076; 84443; 83036; 84484 ×3; 80053; 83880; 80307; 71045; U0003; J1815 ×3; J1650 ×2; J3475; J7040; J7030; G0378

== ENCOUNTER 2022-06-27 20:38 | Emergency (ER) | payer BC ==
[2022-06-27] MEDS ORDERED: NA CHLORIDE 0.9% 1,000 ML ONE (22:31)
[2022-06-27] MEDS ORDERED: MAGNESIUM SULFATE 1 gm IVPB 1 GM/100 ML BAG IV ONE (22:31)
--- NOTE | 2022-06-27 22:58 | RAD REPORT ---
EXAM DESCRIPTION: RAD - Chest Single View - 06/27/2022 10:47 pm CLINICAL HISTORY: PALPITATIONS Chest pain. COMPARISON: Chest Single View dated 04/19/2022; Chest Single View dated 09/09/2019; Chest Single View dated 07/10/2019; Chest Single View dated 02/09/2019 FINDINGS: Portable technique limits examination quality. The lungs are grossly clear. The heart is normal in size. No displaced fractures. IMPRESSION: No acute intrathoracic process suspected.
[2022-06-27 23:28] LABS: Hematocrit 42.5 % (39.6-49.0); Lymphocytes % 36.1 % (15.3-44.8); MCV 82.6 fL (80-100); MPV 7.5 fL (7.6-11.3); RBC Red Blood Cell Count 5.14 M/uL (4.33-5.43)
[2022-06-27 23:51] LABS: Magnesium 1.7 mg/dL (1.8-2.4); Troponin High Sensitivity 24.7 pg/mL (<58.9)
[2022-06-27 23:52] LABS: Potassium 2.5 mmol/L (3.5-5.1)
--- NOTE | 2022-06-28 00:05 | ER ---
Nurse's Notes [facility] Name: Jim Nguyễn Jr Age: 37 yrs Sex: Male : 1985 Arrival Date: 06/27/2022 Time: 20:42 Bed 20 Private MD: Diagnosis: Palpitations;Hypokalemia;Hypomagnesemia Presentation: 06/27 21:06 Chief complaint: Patient states: "I checked my blood pressure and it was 169/69, then tw5 my heart beat was skipping and going fast. I thought it was just acid reflux.". Coronavirus screen: Vaccine status:. Coronavirus screen: Vaccine status: Patient reports receiving the 2nd dose of the covid vaccine. Unknown. Ebola Screen: Patient negative for fever greater than or equal to 101.5 degrees Fahrenheit, and additional compatible Ebola Virus Disease symptoms Patient denies exposure to infectious person. Patient denies travel to an Ebola-affected area in the 21 days before illness onset. Initial Sepsis Screen: Does the patient meet any 2 criteria? No. Patient's initial sepsis screen is negative. Does the patient have a suspected source of infection? No. Patient's initial sepsis screen is negative. Risk Assessment: Do you want to hurt yourself or someone else? Patient reports no desire to harm self or others. Onset of symptoms was June 27, 2022. 21:06 Method Of Arrival: Ambulatory tw5 21:06 Acuity: LUCILA 3 tw5 Triage Assessment: 21:08 General: Appears in no apparent distress. Behavior is calm. Pain: Denies pain. tw5 Historical: - Allergies: 21:08 No Known Allergies; tw5 - Home Meds: 21:08 Glipizide Oral [Active]; losartan Oral [Active]; metformin 500 mg oral Tb24 [Active]; tw5 - PMHx: 21:08 Asthma; Diabetes - NIDDM; Hypertension; tw5 - Immunization history:: Flu vaccine is not up to date. - Social history:: Smoking status: Patient reports the use of cigarette tobacco products, smokes two packs cigarettes per day. - Family history:: not pertinent. - Hospitalizations: : No recent hospitalization is reported. Screenin:26 Abuse screen: Denies threats or abuse. Denies injuries from another. Nutritional ld1 screening: No deficits noted. Tuberculosis screening: No symptoms or risk factors identified. Fall Risk No fall in past 12 months (0 pts). No secondary diagnosis (0 pts). IV access (20 points). Ambulatory Aid- None/Bed Rest/Nurse Assist (0 pts). Gait- Normal/Bed Rest/Wheelchair (0 pts) Mental Status- Oriented to own ability (0 pts). Total Couch Fall Scale indicates No Risk (0-24 pts). Assessment: 21:26 General: Appears distressed, uncomfortable, Behavior is cooperative, appropriate for ld1 age, anxious. Pain: Denies pain. Neuro: Level of Consciousness is awake, alert, obeys commands, Oriented to person, place, time, situation. Cardiovascular: Capillary refill < 3 seconds Clubbing of nail beds is absent JVD is absent Patient's skin is warm and dry. Respiratory: Airway is patent Respiratory effort is even, unlabored. GI: No signs and/or symptoms were reported involving the gastrointestinal system. : No signs and/or symptoms were reported regarding the genitourinary system. EENT: No signs and/or symptoms were reported regarding the EENT system. Derm: No signs and/or symptoms reported regarding the dermatologic system. Musculoskeletal: No signs and/or symptoms reported regarding the musculoskeletal system. 22:15 Reassessment: Patient and/or family updated on plan of care and expected duration. Pain eh3 level reassessed. Patient is alert, oriented x 3, equal unlabored respirations, skin warm/dry/pink. 23:13 Reassessment: Patient appears in no apparent distress at this time. Patient and/or ld1 family updated on plan of care and expected duration. Pain level reassessed. Patient is alert, oriented x 3, equal unlabored respirations, skin warm/dry/pink. 06/28 00:20 General: pt will complete potassium infusion, then D/C home. . kd3 00:30 Reassessment: Patient and/or family updated on plan of care and expected duration. Pain kd3 level reassessed. Patient is alert, oriented x 3, equal unlabored respirations, skin warm/dry/pink. General: Appears in no apparent distress. Behavior is calm, cooperative. 02:00 Reassessment: No changes from previously documented assessment. Patient and/or family kd3 updated on plan of care and expected duration. Pain level reassessed. Patient is alert, oriented x 3, equal unlabored respirations, skin warm/dry/pink. 03:20 Reassessment: No changes from previously documented assessment. Patient and/or family kd3 updated on plan of care and expected duration. Pain level reassessed. Patient is alert, oriented x 3, equal unlabored respirations, skin warm/dry/pink. Patient states feeling better. Patient states symptoms have improved. Vital Signs: 06/27 21:06 BP 157 / 102; Pulse 117; Resp 18; Temp 98.9; Pulse Ox 100% on R/A; Weight 90.72 kg; tw5 Height 5 ft. 9 in. (175.26 cm); Pain 0/10; 21:26 BP 106 / 78; Pulse 112; Resp 18; Pulse Ox 99% on R/A; Pain 0/10; ld1 22:15 BP 110 / 72; Pulse 106; Resp 21; Pulse Ox 96% on R/A; eh3 23:13 BP 119 / 82; Pulse 98; Resp 14; Pulse Ox 99% on R/A; Pain 0/10; ld1 06/28 03:40 BP 113 / 88; Pulse 85; Resp 19; Pulse Ox 96% on R/A; kd3 06/27 21:06 Body Mass Index 29.53 (90.72 kg, 175.26 cm) tw5 Vitals: 06/27 21:26 Cardiac Rhythm Assessment Sinus tach. ld1 ED Course: 20:42 Patient arrived in ED. ja2 20:53 Keegan Harrington MD is Attending Physician. rn 21:08 Triage completed. tw5 21:08 Arm band placed on right wrist. tw5 21:25 Kae Cason, YIN is Primary Nurse. ld1 21:26 Patient has correct armband on for positive identification. Placed in gown. Bed in low ld1 position. Call light in reach. Side rails up X2. Adult w/ patient. Client placed on continuous cardiac and pulse oximetry monitoring. NIBP monitoring applied. 21:29 Belle Francis, YIN is Primary Nurse. eh3 22:15 Missed attempt(s): 20 gauge in right forearm. Bleeding controlled, band aid applied, eh3 catheter tip intact. 22:49 XRAY Chest (1 view) In Process Unspecified. EDMS 23:12 Inserted saline lock: 20 gauge in right antecubital area, using aseptic technique. ld1 Blood collected. 06/28 03:42 No provider procedures requiring assistance completed. kd3 03:57 IV discontinued, intact, bleeding controlled, No redness/swelling at site. Pressure kd3 dressing applied. Administered Medications: 06/27 23:07 Drug: NS 0.9% 1000 ml Route: IV; Rate: 1 bolus; Site: right antecubital; ld1 06/28 01:21 Follow up: Response: No adverse reaction; IV Status: Completed infusion kd3 06/27 23:08 Drug: Magnesium Sulfate 1 grams Route: IVPB; Infused Over: 1 hrs; Site: right ld1 antecubital; 06/28 00:13 Follow up: IV Status: Completed infusion kd3 00:12 Drug: Potassium Chloride 40 mEq Route: PO; kd3 01:21 Follow up: Response: No adverse reaction kd3 00:13 Drug: Potassium Chloride 20 mEq Route: IV; Rate: calculated rate; Site: right kd3 antecubital; 03:58 Follow up: IV Status: Completed infusion kd3 Medication: 03:42 VIS not applicable for this client. kd3 Outcome: 00:04 Discharge ordered by . rn 03:42 Discharged to home ambulatory. kd3 03:42 Discharge instructions given to patient, Instructed on discharge instructions, follow up and referral plans. Demonstrated understanding of instructions, follow-up care. 03:57 Condition: stable kd3 03:58 Patient left the ED. kd3 Signatures: Dispatcher [employer] EDMS Keegan Harrington MD MD rn Dibbern, Lauren, RN RN ld1 Keila Lakhani Tiffany 5 Johanna Rainey RN RN kd3 Belle Francis RN RN eh3
--- NOTE | 2022-06-28 00:05 | EDPHYS ---
Physician Documentation [facility] Name: Jim Nguyễn Jr Age: 37 yrs Sex: Male : 1985 Arrival Date: 06/27/2022 Time: 20:42 Bed 20 Private MD: ED Physician Keegan Harrington HPI: 06/27 21:50 This 37 yrs old Male presents to ER via Ambulatory with complaints of rn palpitations. 21:51 The patient presents with a history of irregular heart beat, heart racing. Context: The rn symptoms occur at rest. Onset: The symptoms/episode began/occurred just prior to arrival. Duration: The patient or guardian reports a single episode, that is still ongoing. Modifying factors: The symptoms are aggravated by nothing. The symptoms are alleviated by nothing. Associated signs and symptoms: Pertinent negatives: chest pain, cough, fever, SOB, syncope. Severity of symptoms: At their worst the symptoms were moderate in the emergency department the symptoms are unchanged. The patient has not experienced similar symptoms in the past. The patient has not recently seen a physician. Pt reports palpitations, began just prior to arrival, no fever/chest pain/cough/sob/abd pain/vomiting/diarrhea. No drug use. Reports energy drink earlier. Also reports not drinking much water recently. . Historical: - Allergies: 21:08 No Known Allergies; tw5 - Home Meds: 21:08 Glipizide Oral [Active]; losartan Oral [Active]; metformin 500 mg oral Tb24 [Active]; tw5 - PMHx: 21:08 Asthma; Diabetes - NIDDM; Hypertension; tw5 - Immunization history:: Flu vaccine is not up to date. - Social history:: Smoking status: Patient reports the use of cigarette tobacco products, smokes two packs cigarettes per day. - Family history:: not pertinent. - Hospitalizations: : No recent hospitalization is reported. ROS: 21:51 Constitutional: Negative for fever, chills, and weight loss, Eyes: Negative for injury, rn pain, redness, and discharge, Neck: Negative for injury, pain, and swelling, Cardiovascular: Negative for chest pain, and edema, Respiratory: Negative for shortness of breath, cough, wheezing, and pleuritic chest pain, Abdomen/GI: Negative for abdominal pain, nausea, vomiting, diarrhea, and constipation, Back: Negative for injury and pain, MS/Extremity: Negative for injury and deformity, Skin: Negative for injury, rash, and discoloration, Neuro: Negative for headache, weakness, numbness, tingling, and seizure. Exam: 21:25 ECG was reviewed by the Attending Physician. rn 21:51 Constitutional: This is a well developed, well nourished patient who is awake, alert, rn appears anxious Head/Face: Normocephalic, atraumatic. Cardiovascular: Tachycardic, regular Respiratory: No increased work of breathing, no retractions or nasal flaring. Abdomen/GI: Soft, non-tender Skin: Warm, dry MS/ Extremity: Pulses equal, no cyanosis. Neuro: Awake and alert, GCS 15, oriented to person, place, time, and situation. Cranial nerves II-XII grossly intact. Motor strength 5/5 in all extremities. Sensory grossly intact. Cerebellar exam normal. Normal gait. Vital Signs: 21:06 BP 157 / 102; Pulse 117; Resp 18; Temp 98.9; Pulse Ox 100% on R/A; Weight 90.72 kg; tw5 Height 5 ft. 9 in. (175.26 cm); Pain 0/10; 21:26 BP 106 / 78; Pulse 112; Resp 18; Pulse Ox 99% on R/A; Pain 0/10; ld1 22:15 BP 110 / 72; Pulse 106; Resp 21; Pulse Ox 96% on R/A; eh3 23:13 BP 119 / 82; Pulse 98; Resp 14; Pulse Ox 99% on R/A; Pain 0/10; ld1 06/28 03:40 BP 113 / 88; Pulse 85; Resp 19; Pulse Ox 96% on R/A; kd3 06/27 21:06 Body Mass Index 29.53 (90.72 kg, 175.26 cm) tw5 MDM: 06/27 20:54 Patient medically screened. rn 06/28 00:03 Differential diagnosis: arrythmia, dehydration, stress disorder, hypokalemia, rn hypomagnesemia. Data reviewed: vital signs, nurses notes, lab test result(s), EKG, and as a result, I will discharge patient. Counseling: I had a detailed discussion with the patient and/or guardian regarding: the historical points, exam findings, and any diagnostic results supporting the discharge/admit diagnosis, lab results, the need for outpatient follow up, to return to the emergency department if symptoms worsen or persist or if there are any questions or concerns that arise at home. Response to treatment: the patient's symptoms have markedly improved after treatment, the patient's symptoms have resolved after treatment, the patient's condition has returned to base line, the patient is now symptom free, and as a result, I will discharge patient. Special discussion: I discussed with the patient/guardian in detail that at this point there is no indication for admission to the hospital. It is understood, however, that if the symptoms persist or worsen the patient needs to return immediately for re-evaluation. 06/27 20:59 Order name: Basic Metabolic Panel; Complete Time: :57 06/27 20:59 Order name: CBC with Diff; Complete Time: 23:48 06/27 20:59 Order name: Magnesium; Complete Time: :57 06/27 20:59 Order name: NT PRO-BNP; Complete Time: :57 06/27 20:59 Order name: Troponin HS; Complete Time: :57 06/27 20:59 Order name: XRAY Chest (1 view); Complete Time: 23:00 06/27 20:59 Order name: EKG; Complete Time: :56 06/27 20:59 Order name: Cardiac monitoring; Complete Time: :06/27 20:59 Order name: EKG - Nurse/Tech; Complete Time: :06/27 20:59 Order name: IV Saline Lock; Complete Time: 23:12 06/27 20:59 Order name: Labs collected and sent; Complete Time: 23:12 06/27 20:59 Order name: O2 Per Protocol; Complete Time: :06/27 20:59 Order name: O2 Sat Monitoring; Complete Time: : rn EC/15 21:25 Rate is 111 beats/min. Rhythm is irregular. QRS Marana is Normal. CA interval is normal. rn QRS interval is normal. QT interval is normal. No Q waves. T waves are Normal. No ST changes noted. Clinical impression: Sinus tachycardia. Interpreted by me. Reviewed by me. Administered Medications: 23:07 Drug: NS 0.9% 1000 ml Route: IV; Rate: 1 bolus; Site: right antecubital; ld1 06/28 01:21 Follow up: Response: No adverse reaction; IV Status: Completed infusion kd3 06/27 23:08 Drug: Magnesium Sulfate 1 grams Route: IVPB; Infused Over: 1 hrs; Site: right ld1 antecubital; 06/28 00:13 Follow up: IV Status: Completed infusion kd3 00:12 Drug: Potassium Chloride 40 mEq Route: PO; kd3 01:21 Follow up: Response: No adverse reaction kd3 00:13 Drug: Potassium Chloride 20 mEq Route: IV; Rate: calculated rate; Site: right kd3 antecubital; 03:58 Follow up: IV Status: Completed infusion kd3 Disposition Summary: 06/28/22 00:04 Discharge Ordered Location: Home rn Problem: new rn Symptoms: have improved rn Condition: Stable rn Diagnosis - Palpitations rn - Hypokalemia rn - Hypomagnesemia rn Followup: rn - With: Private Physician - When: As needed - Reason: Recheck today's complaints, Re-evaluation by your physician Discharge Instructions: - Discharge Summary Sheet rn - Hypomagnesemia rn - Palpitations rn - Hypokalemia rn Forms: - Medication Reconciliation Form rn - Thank You Letter rn - Antibiotic pattern hanger - Prescription Opioid Use rn Signatures: Dispatcher [employer] Keegan Muir MD MD rn Dibbern, Lauren RN RN [id number] Caron Miranda tw5 Johanna Rainey RN RN kd3
[2022-06-28] MEDS ORDERED: NA CHLORIDE 0.9% 500 ML ONE (00:10)
[2022-06-28] MEDS ORDERED: POTASSIUM CL SA 10 MEQ TAB PO ONE (00:10)
[2022-06-28] MEDS ORDERED: KCL 20 MEQ/100 mL IVPB 100 ML IV ONE (00:10)
--- NOTE | 2022-06-28 12:30 | EKG ---
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
[2022-06-29 13:55] VITALS: TEMP 98.9
[2022-06-29 14:07] VITALS: BP 113/88; O2SAT 96
== END 2022-06-28 03:58 | disposition home or self-care (01) ==
LOC: ER 20:38
DX: R00.2 Palpitations (principal); E87.6 Hypokalemia; E83.42 Hypomagnesemia; F17.210 Nicotine dependence, cigarettes, uncomplicated; I10 Essential (primary) hypertension
CPT/HCPCS: 96365; 96367; 93005 ×2; 85025; 80048; 36415; 83735; 84484; 83880; 71045; 99284; 96366; J3480; J3475; J7040; J7030